=== PATIENT | female | born 1955 | race Caucasian/White ===

== ENCOUNTER 2017-04-24 10:27 | Day surgery (SDC) | payer MEDICARE, MEDICAID ==
[~2017-04-24 10:27] MED LIST: ALLO100T16 PO; ASPI-1265 PO; BAC10T PO; CEPH500C5 PO; GABA-338 PO; HYDR-3972 PO; LISI40TA4 PO; POTA8TAB8 PO
[2017-04-24] MEDS ORDERED: LIDOcaine 2% 5ml jelly ONE (11:21)
[2017-04-24] MEDS ORDERED: FURO-150 PO (12:18)
[2017-04-24] MEDS ORDERED: AMIT-189 PO (12:19)
== END 2017-04-24 13:15 | disposition home or self-care (01) ==
LOC: WOUND CARE 10:27
PROVIDERS: ATTEND Surgery
DX: E11.622 Type 2 diabetes mellitus with other skin ulcer (principal); L97.221 Non-pressure chronic ulcer of left calf limited to breakdown of skin; L97.211 Non-pressure chronic ulcer of right calf limited to breakdown of skin; I83.012 Varicose veins of right lower extremity with ulcer of calf; I83.022 Varicose veins of left lower extremity with ulcer of calf; E11.22 Type 2 diabetes mellitus with diabetic chronic kidney disease; I12.9 Hypertensive chronic kidney disease with stage 1 through stage 4 chronic kidney disease, or unspecified chronic kidney disease; N18.9 Chronic kidney disease, unspecified; J44.9 Chronic obstructive pulmonary disease, unspecified; K21.9 Gastro-esophageal reflux disease without esophagitis; E66.01 Morbid (severe) obesity due to excess calories; G47.33 Obstructive sleep apnea (adult) (pediatric); E11.40 Type 2 diabetes mellitus with diabetic neuropathy, unspecified; E11.51 Type 2 diabetes mellitus with diabetic peripheral angiopathy without gangrene; F17.210 Nicotine dependence, cigarettes, uncomplicated; F32.9 Major depressive disorder, single episode, unspecified; Z90.710 Acquired absence of both cervix and uterus; Z79.82 Long term (current) use of aspirin; Z68.43 Body mass index [BMI] 50.0-59.9, adult
CPT/HCPCS: 36416; 82948; 87070; 87075; 87077; 87102; 87186; 97597; 97598; A6021; A6223; A6441

== ENCOUNTER 2017-04-29 09:47 | Day surgery (SDC) | payer MEDICARE, MEDICAID ==
[~2017-04-29 09:47] MED LIST changes: +AMIT-189 PO; -CEPH500C5 PO; +FURO-150 PO
[2017-04-29] MEDS ORDERED: LIDOcaine 2% 5ml jelly ONE (11:13)
[2017-04-29] MEDS ORDERED: LINA5TAB4 PO (15:18)
[2017-04-29] MEDS ORDERED: ALOG12.52 (15:19)
== END 2017-04-29 12:50 | disposition home or self-care (01) ==
LOC: WOUND CARE 09:47
PROVIDERS: ATTEND Surgery
DX: E11.622 Type 2 diabetes mellitus with other skin ulcer (principal); L97.221 Non-pressure chronic ulcer of left calf limited to breakdown of skin; L97.211 Non-pressure chronic ulcer of right calf limited to breakdown of skin; I83.012 Varicose veins of right lower extremity with ulcer of calf; I83.022 Varicose veins of left lower extremity with ulcer of calf; E11.22 Type 2 diabetes mellitus with diabetic chronic kidney disease; I12.9 Hypertensive chronic kidney disease with stage 1 through stage 4 chronic kidney disease, or unspecified chronic kidney disease; N18.9 Chronic kidney disease, unspecified; J44.9 Chronic obstructive pulmonary disease, unspecified; K21.9 Gastro-esophageal reflux disease without esophagitis; E66.01 Morbid (severe) obesity due to excess calories; G47.33 Obstructive sleep apnea (adult) (pediatric); E11.40 Type 2 diabetes mellitus with diabetic neuropathy, unspecified; E11.51 Type 2 diabetes mellitus with diabetic peripheral angiopathy without gangrene; F17.210 Nicotine dependence, cigarettes, uncomplicated; F32.9 Major depressive disorder, single episode, unspecified; Z90.710 Acquired absence of both cervix and uterus; Z79.82 Long term (current) use of aspirin; Z68.43 Body mass index [BMI] 50.0-59.9, adult
CPT/HCPCS: 36416; 82948; 97597; 97598; A6021; A6206; A6441

== ENCOUNTER 2017-05-06 09:53 | Day surgery (SDC) | payer MEDICARE, MEDICAID ==
[~2017-05-06 09:53] MED LIST changes: +ALOG12.52; +LINA5TAB4 PO
[2017-05-06] MEDS ORDERED: LIDOcaine 2% 5ml jelly ONE (10:10)
== END 2017-05-06 11:41 | disposition home or self-care (01) ==
LOC: WOUND CARE 09:53
PROVIDERS: ATTEND Surgery
DX: E11.622 Type 2 diabetes mellitus with other skin ulcer (principal); L97.221 Non-pressure chronic ulcer of left calf limited to breakdown of skin; L97.211 Non-pressure chronic ulcer of right calf limited to breakdown of skin; I83.012 Varicose veins of right lower extremity with ulcer of calf; I83.022 Varicose veins of left lower extremity with ulcer of calf; E11.40 Type 2 diabetes mellitus with diabetic neuropathy, unspecified; E11.51 Type 2 diabetes mellitus with diabetic peripheral angiopathy without gangrene; E11.22 Type 2 diabetes mellitus with diabetic chronic kidney disease; I12.9 Hypertensive chronic kidney disease with stage 1 through stage 4 chronic kidney disease, or unspecified chronic kidney disease; N18.9 Chronic kidney disease, unspecified; J44.9 Chronic obstructive pulmonary disease, unspecified; K21.9 Gastro-esophageal reflux disease without esophagitis; E66.01 Morbid (severe) obesity due to excess calories; G47.33 Obstructive sleep apnea (adult) (pediatric); F32.9 Major depressive disorder, single episode, unspecified; Z90.710 Acquired absence of both cervix and uterus; Z79.82 Long term (current) use of aspirin; Z68.43 Body mass index [BMI] 50.0-59.9, adult
CPT/HCPCS: 36416; 82948; 97597; A6021; A6206; A6223; A6250; A6441

== ENCOUNTER 2017-05-13 09:34 | Outpatient (CLI) | payer MEDICARE, MEDICAID | END 2017-05-13 10:39 | disposition home or self-care (01) | LOC: WOUND CARE 09:34 → EDSTATUS 10:00 → WOUND CARE 10:39 | PROVIDERS: ATTEND Surgery | DX: E11.622 Type 2 diabetes mellitus with other skin ulcer (principal); L97.221 Non-pressure chronic ulcer of left calf limited to breakdown of skin; L97.211 Non-pressure chronic ulcer of right calf limited to breakdown of skin; E11.40 Type 2 diabetes mellitus with diabetic neuropathy, unspecified; E11.51 Type 2 diabetes mellitus with diabetic peripheral angiopathy without gangrene; E11.22 Type 2 diabetes mellitus with diabetic chronic kidney disease; I12.9 Hypertensive chronic kidney disease with stage 1 through stage 4 chronic kidney disease, or unspecified chronic kidney disease; N18.9 Chronic kidney disease, unspecified; J44.9 Chronic obstructive pulmonary disease, unspecified; K21.9 Gastro-esophageal reflux disease without esophagitis; E66.01 Morbid (severe) obesity due to excess calories; G47.33 Obstructive sleep apnea (adult) (pediatric); F32.9 Major depressive disorder, single episode, unspecified; Z90.710 Acquired absence of both cervix and uterus; Z79.82 Long term (current) use of aspirin; Z68.43 Body mass index [BMI] 50.0-59.9, adult | CPT/HCPCS: 29581; 36416; 82948; A6021; A6206; A6441 ==

== ENCOUNTER 2017-05-20 09:51 | Day surgery (SDC) | payer MEDICARE, MEDICAID ==
[2017-05-20] MEDS ORDERED: LIDOcaine 2% 5ml jelly ONE (11:06)
== END 2017-05-20 12:15 | disposition home or self-care (01) ==
LOC: WOUND CARE 09:51
PROVIDERS: ATTEND Surgery
DX: E11.622 Type 2 diabetes mellitus with other skin ulcer (principal); L97.221 Non-pressure chronic ulcer of left calf limited to breakdown of skin; L97.211 Non-pressure chronic ulcer of right calf limited to breakdown of skin; E11.40 Type 2 diabetes mellitus with diabetic neuropathy, unspecified; E11.51 Type 2 diabetes mellitus with diabetic peripheral angiopathy without gangrene; E11.22 Type 2 diabetes mellitus with diabetic chronic kidney disease; I12.9 Hypertensive chronic kidney disease with stage 1 through stage 4 chronic kidney disease, or unspecified chronic kidney disease; N18.9 Chronic kidney disease, unspecified; J44.9 Chronic obstructive pulmonary disease, unspecified; K21.9 Gastro-esophageal reflux disease without esophagitis; E66.01 Morbid (severe) obesity due to excess calories; G47.33 Obstructive sleep apnea (adult) (pediatric); F32.9 Major depressive disorder, single episode, unspecified; Z90.710 Acquired absence of both cervix and uterus; Z79.82 Long term (current) use of aspirin; Z68.43 Body mass index [BMI] 50.0-59.9, adult
CPT/HCPCS: 36416; 82948; 97597; 97598; A6021; A6206; A6441

== ENCOUNTER 2017-05-27 10:00 | Day surgery (SDC) | payer MEDICARE, MEDICAID ==
[2017-05-27] MEDS ORDERED: LIDOcaine 2% 5ml jelly ONE (11:00)
== END 2017-05-27 11:56 | disposition home or self-care (01) ==
LOC: WOUND CARE 10:00
PROVIDERS: ATTEND Surgery
DX: E11.622 Type 2 diabetes mellitus with other skin ulcer (principal); L97.821 Non-pressure chronic ulcer of other part of left lower leg limited to breakdown of skin; L97.811 Non-pressure chronic ulcer of other part of right lower leg limited to breakdown of skin; E11.40 Type 2 diabetes mellitus with diabetic neuropathy, unspecified; E11.51 Type 2 diabetes mellitus with diabetic peripheral angiopathy without gangrene; E11.22 Type 2 diabetes mellitus with diabetic chronic kidney disease; I12.9 Hypertensive chronic kidney disease with stage 1 through stage 4 chronic kidney disease, or unspecified chronic kidney disease; N18.9 Chronic kidney disease, unspecified; J44.9 Chronic obstructive pulmonary disease, unspecified; K21.9 Gastro-esophageal reflux disease without esophagitis; E66.01 Morbid (severe) obesity due to excess calories; G47.33 Obstructive sleep apnea (adult) (pediatric); F32.9 Major depressive disorder, single episode, unspecified; Z90.710 Acquired absence of both cervix and uterus; Z79.82 Long term (current) use of aspirin; Z68.43 Body mass index [BMI] 50.0-59.9, adult
CPT/HCPCS: 36416; 82948; 97597; A6021; A6206; A6441

== ENCOUNTER 2017-06-03 10:05 | Outpatient (CLI) | payer MEDICARE, MEDICAID | END 2017-06-03 11:30 | disposition home or self-care (01) | LOC: WOUND CARE 10:05 | PROVIDERS: ATTEND Surgery | DX: E11.622 Type 2 diabetes mellitus with other skin ulcer (principal); L97.821 Non-pressure chronic ulcer of other part of left lower leg limited to breakdown of skin; L97.811 Non-pressure chronic ulcer of other part of right lower leg limited to breakdown of skin; E11.40 Type 2 diabetes mellitus with diabetic neuropathy, unspecified; E11.51 Type 2 diabetes mellitus with diabetic peripheral angiopathy without gangrene; E11.22 Type 2 diabetes mellitus with diabetic chronic kidney disease; I12.9 Hypertensive chronic kidney disease with stage 1 through stage 4 chronic kidney disease, or unspecified chronic kidney disease; N18.9 Chronic kidney disease, unspecified; J44.9 Chronic obstructive pulmonary disease, unspecified; K21.9 Gastro-esophageal reflux disease without esophagitis; E66.01 Morbid (severe) obesity due to excess calories; G47.33 Obstructive sleep apnea (adult) (pediatric); F32.9 Major depressive disorder, single episode, unspecified; Z90.710 Acquired absence of both cervix and uterus; Z79.82 Long term (current) use of aspirin; Z68.43 Body mass index [BMI] 50.0-59.9, adult | CPT/HCPCS: 29581; 36416; 82948; A6021; A6206; A6441 ==

== ENCOUNTER 2017-06-10 10:08 | Day surgery (SDC) | payer MEDICARE, MEDICAID | END 2017-06-10 12:08 | disposition home or self-care (01) | LOC: WOUND CARE 10:08 | PROVIDERS: ATTEND Surgery | DX: E11.622 Type 2 diabetes mellitus with other skin ulcer (principal); L97.821 Non-pressure chronic ulcer of other part of left lower leg limited to breakdown of skin; L97.811 Non-pressure chronic ulcer of other part of right lower leg limited to breakdown of skin; I83.012 Varicose veins of right lower extremity with ulcer of calf; I83.022 Varicose veins of left lower extremity with ulcer of calf; E11.40 Type 2 diabetes mellitus with diabetic neuropathy, unspecified; E11.51 Type 2 diabetes mellitus with diabetic peripheral angiopathy without gangrene; E11.22 Type 2 diabetes mellitus with diabetic chronic kidney disease; I12.9 Hypertensive chronic kidney disease with stage 1 through stage 4 chronic kidney disease, or unspecified chronic kidney disease; N18.9 Chronic kidney disease, unspecified; J44.9 Chronic obstructive pulmonary disease, unspecified; K21.9 Gastro-esophageal reflux disease without esophagitis; E66.01 Morbid (severe) obesity due to excess calories; G47.33 Obstructive sleep apnea (adult) (pediatric); F32.9 Major depressive disorder, single episode, unspecified; Z90.710 Acquired absence of both cervix and uterus; Z79.82 Long term (current) use of aspirin; Z68.43 Body mass index [BMI] 50.0-59.9, adult | CPT/HCPCS: 29581; 36416; 82948; 97597; A6021; A6441 ==

== ENCOUNTER 2017-06-17 10:31 | Day surgery (SDC) | payer MEDICARE, MEDICAID ==
[2017-06-17] MEDS ORDERED: LIDOcaine 2% 5ml jelly ONE (10:57)
== END 2017-06-17 11:40 | disposition home or self-care (01) ==
LOC: WOUND CARE 10:31
PROVIDERS: ATTEND Surgery
DX: E11.622 Type 2 diabetes mellitus with other skin ulcer (principal); L97.821 Non-pressure chronic ulcer of other part of left lower leg limited to breakdown of skin; L97.811 Non-pressure chronic ulcer of other part of right lower leg limited to breakdown of skin; I83.012 Varicose veins of right lower extremity with ulcer of calf; I83.022 Varicose veins of left lower extremity with ulcer of calf; E11.40 Type 2 diabetes mellitus with diabetic neuropathy, unspecified; E11.51 Type 2 diabetes mellitus with diabetic peripheral angiopathy without gangrene; E11.22 Type 2 diabetes mellitus with diabetic chronic kidney disease; I12.9 Hypertensive chronic kidney disease with stage 1 through stage 4 chronic kidney disease, or unspecified chronic kidney disease; N18.9 Chronic kidney disease, unspecified; J44.9 Chronic obstructive pulmonary disease, unspecified; K21.9 Gastro-esophageal reflux disease without esophagitis; E66.01 Morbid (severe) obesity due to excess calories; G47.33 Obstructive sleep apnea (adult) (pediatric); F32.9 Major depressive disorder, single episode, unspecified; F17.200 Nicotine dependence, unspecified, uncomplicated; Z90.710 Acquired absence of both cervix and uterus; Z79.82 Long term (current) use of aspirin; Z68.43 Body mass index [BMI] 50.0-59.9, adult
CPT/HCPCS: 29581; 36416; 82948; 97597; A6021; A6206; A6441

== ENCOUNTER 2017-06-24 10:38 | Outpatient (CLI) | payer MEDICARE, MEDICAID | END 2017-06-24 11:48 | disposition home or self-care (01) | LOC: WOUND CARE 10:38 | PROVIDERS: ATTEND Surgery | DX: E11.622 Type 2 diabetes mellitus with other skin ulcer (principal); L97.821 Non-pressure chronic ulcer of other part of left lower leg limited to breakdown of skin; L97.811 Non-pressure chronic ulcer of other part of right lower leg limited to breakdown of skin; I83.012 Varicose veins of right lower extremity with ulcer of calf; I83.022 Varicose veins of left lower extremity with ulcer of calf; E11.40 Type 2 diabetes mellitus with diabetic neuropathy, unspecified; E11.51 Type 2 diabetes mellitus with diabetic peripheral angiopathy without gangrene; E11.65 Type 2 diabetes mellitus with hyperglycemia; E11.22 Type 2 diabetes mellitus with diabetic chronic kidney disease; I12.9 Hypertensive chronic kidney disease with stage 1 through stage 4 chronic kidney disease, or unspecified chronic kidney disease; N18.9 Chronic kidney disease, unspecified; J44.9 Chronic obstructive pulmonary disease, unspecified; K21.9 Gastro-esophageal reflux disease without esophagitis; E66.01 Morbid (severe) obesity due to excess calories; G47.33 Obstructive sleep apnea (adult) (pediatric); F32.9 Major depressive disorder, single episode, unspecified; F17.200 Nicotine dependence, unspecified, uncomplicated; Z90.710 Acquired absence of both cervix and uterus; Z79.82 Long term (current) use of aspirin; Z68.43 Body mass index [BMI] 50.0-59.9, adult | CPT/HCPCS: 29581; 36416; 82948; A6441 ==

== ENCOUNTER 2017-07-01 10:45 | Day surgery (SDC) | payer MEDICARE, MEDICAID | END 2017-07-01 14:00 | disposition home or self-care (01) | LOC: WOUND CARE 10:45 | PROVIDERS: ATTEND Surgery | DX: E11.622 Type 2 diabetes mellitus with other skin ulcer (principal); L97.821 Non-pressure chronic ulcer of other part of left lower leg limited to breakdown of skin; L97.811 Non-pressure chronic ulcer of other part of right lower leg limited to breakdown of skin; I83.012 Varicose veins of right lower extremity with ulcer of calf; I83.022 Varicose veins of left lower extremity with ulcer of calf; E11.40 Type 2 diabetes mellitus with diabetic neuropathy, unspecified; E11.51 Type 2 diabetes mellitus with diabetic peripheral angiopathy without gangrene; E11.65 Type 2 diabetes mellitus with hyperglycemia; E11.22 Type 2 diabetes mellitus with diabetic chronic kidney disease; I12.9 Hypertensive chronic kidney disease with stage 1 through stage 4 chronic kidney disease, or unspecified chronic kidney disease; N18.9 Chronic kidney disease, unspecified; J44.9 Chronic obstructive pulmonary disease, unspecified; K21.9 Gastro-esophageal reflux disease without esophagitis; E66.01 Morbid (severe) obesity due to excess calories; G47.33 Obstructive sleep apnea (adult) (pediatric); F32.9 Major depressive disorder, single episode, unspecified; F17.200 Nicotine dependence, unspecified, uncomplicated; Z90.710 Acquired absence of both cervix and uterus; Z79.82 Long term (current) use of aspirin; Z68.43 Body mass index [BMI] 50.0-59.9, adult | CPT/HCPCS: 29581; 36416; 82948; 97597; A6021; A6206; A6212; A6250; A6441 ==

== ENCOUNTER 2017-07-08 09:57 | Outpatient (CLI) | payer MEDICARE, MEDICAID | END 2017-07-08 12:03 | disposition home or self-care (01) | LOC: WOUND CARE 09:57 → EDSTATUS 10:30 → WOUND CARE 12:03 | PROVIDERS: ATTEND Surgery | DX: E11.622 Type 2 diabetes mellitus with other skin ulcer (principal); L97.821 Non-pressure chronic ulcer of other part of left lower leg limited to breakdown of skin; L97.811 Non-pressure chronic ulcer of other part of right lower leg limited to breakdown of skin; I83.012 Varicose veins of right lower extremity with ulcer of calf; I83.022 Varicose veins of left lower extremity with ulcer of calf; E11.40 Type 2 diabetes mellitus with diabetic neuropathy, unspecified; E11.51 Type 2 diabetes mellitus with diabetic peripheral angiopathy without gangrene; E11.65 Type 2 diabetes mellitus with hyperglycemia; E11.22 Type 2 diabetes mellitus with diabetic chronic kidney disease; I12.9 Hypertensive chronic kidney disease with stage 1 through stage 4 chronic kidney disease, or unspecified chronic kidney disease; N18.9 Chronic kidney disease, unspecified; J44.9 Chronic obstructive pulmonary disease, unspecified; K21.9 Gastro-esophageal reflux disease without esophagitis; E66.01 Morbid (severe) obesity due to excess calories; G47.33 Obstructive sleep apnea (adult) (pediatric); F32.9 Major depressive disorder, single episode, unspecified; F17.200 Nicotine dependence, unspecified, uncomplicated; Z90.710 Acquired absence of both cervix and uterus; Z79.82 Long term (current) use of aspirin; Z68.43 Body mass index [BMI] 50.0-59.9, adult | CPT/HCPCS: 29581; 36416; 82948; 99215; A6441 ==

== ENCOUNTER 2017-10-02 07:56 | Emergency (ER) | payer MEDICARE, MEDICAID ==
[~2017-10-02] VITALS: Ht 165.1 cm; Wt 138.0 kg
[2017-10-02] MEDS ORDERED: normal saline 1000ML IV soln IVB ONE (08:30)
[2017-10-02 08:52] LABS: BASOPHILS # (AUTO) 0.1 X10'3 (0-0.2); BASOPHILS % (AUTO) 0.8 % (0-1); EOSINOPHILS # (AUTO) 0.2 X10'3 (0-0.9); EOSINOPHILS % (AUTO) 2.1 % (0-6); HEMATOCRIT 45.4 % (35.0-45.0); HEMOGLOBIN 14.5 g/dl (12.0-16.0); LYMPHOCYTES # (AUTO) 2.3 X10'3 (1.1-4.8); LYMPHOCYTES % (AUTO) 19.1 % (21-51); MEAN CORPUSCULAR HEMOGLOBIN 29.5 PG (27.0-31.0); MEAN CORPUSCULAR VOLUME 92.1 FL (78-98); MEAN PLATELET VOLUME 9.3 FL (7.4-10.4); MONOCYTES # (AUTO) 0.5 X10'3 (0-0.9); MONOCYTES % (AUTO) 4.2 % (2-12); NEUTROPHILS # (AUTO) 8.7 X10'3 (1.8-7.7); NEUTROPHILS % (AUTO) 73.8 % (42-75); PLATELET COUNT 168 X10'3 (140-440); RED BLOOD COUNT 4.93 X10'6 (4.20-5.60); RED CELL DISTRIBUTION WIDTH 14.7 % (11.5-14.5); WHITE BLOOD COUNT 11.8 X10'3 (4.5-11.0)
[2017-10-02 09:15] LABS: ALANINE AMINOTRANSFERASE 20 U/L (12-78); ALBUMIN 3.5 G/DL (3.4-5.0); ALBUMIN/GLOBULIN RATIO 0.8 (1.1-1.5); ALKALINE PHOSPHATASE 152 IU/L (46-116); ANION GAP 8 (8-16); ASPARTATE AMINO TRANSFERASE 15 U/L (10-37); BILIRUBIN,TOTAL 0.5 MG/DL (0.1-1.0); BLOOD UREA NITROGEN 51 MG/DL (7-18); BUN/CREATININE RATIO 27.7 (6.6-38.0); CALCIUM 9.5 MG/DL (8.5-10.1); CHLORIDE 106 MMOL/L (99-107); CREATININE 1.84 MG/DL (0.40-0.90); GLUCOSE 145 MG/DL (70-104); LIPASE 197 U/L (73-393); POTASSIUM 3.7 MMOL/L (3.5-5.1); SODIUM 144 MMOL/L (135-145); TOTAL CARBON DIOXIDE 30.2 MMOL/L (24-32); TOTAL PROTEIN 7.7 G/DL (6.4-8.2); eGFR 28 ML/MIN
[2017-10-02 09:21] VITALS: BP 98/54
[2017-10-02] MEDS ORDERED: CIPR-230 PO (09:33)
[2017-10-02] MEDS ORDERED: ciprofloxacin 250mg tablet PO ONE (09:35)
[2017-10-02 10:18] LABS: CLARITY,URINE CLOUDY (Clear); COLOR,URINE YELLOW (Yellow); GLUCOSE, URINE NEGATIVE (Neg); KETONES,URINE NEGATIVE (Neg); LEUKOCYTE ESTERASE ,URINE LARGE (Neg); NITRITES, URINE POSITIVE (Neg); OCCULT BLOOD,URINE TRACE-INTACT (Neg); PROTEIN,URINE TRACE mg/dl (Neg); UROBILINOGEN,URINE 0.2 E.U/dL (0.2-1.0)
[2017-10-02 10:19] LABS: UA COLLECTION TYPE STRAIGHT CATH
[2017-10-02 10:20] LABS: BACTERIA,URINE 4+ /HPF (Neg); MUCUS STRANDS FEW /LPF (Neg); RBC,URINE 0-2 /HPF (0-2); SQUAMOUS EPITHELIAL CELL,UR NONE SEEN /LPF (FEW)
== END 2017-10-02 11:07 | disposition home or self-care (01) ==
LOC: ER 07:57
DX: S80.811A Abrasion, right lower leg, initial encounter (principal); L03.115 Cellulitis of right lower limb; I10 Essential (primary) hypertension; J44.9 Chronic obstructive pulmonary disease, unspecified; K21.9 Gastro-esophageal reflux disease without esophagitis; E11.9 Type 2 diabetes mellitus without complications; Z79.82 Long term (current) use of aspirin; Z79.899 Other long term (current) drug therapy; X58.XXXA Exposure to other specified factors, initial encounter; Y93.89 Activity, other specified; Y92.89 Other specified places as the place of occurrence of the external cause; Y99.8 Other external cause status
CPT/HCPCS: 36415; 80053; 80320; 81001; 83690; 85025; 87077; 87088; 87186; 93005; 99285; A4310; J7030

== ENCOUNTER 2017-10-12 16:55 | Inpatient (IN) | payer MEDICARE, MEDICAID ==
[~2017-10-12] VITALS: Ht 165.1 cm; Wt 159.1 kg
[~2017-10-12 16:55] MED LIST changes: +CIPR-230 PO
[2017-10-12] MEDS ORDERED: aspirin 81mg tab.chew PO ONE (17:30)
[2017-10-12 18:14] LABS: BASOPHILS % (AUTO) 0.2 % (0-1); EOSINOPHILS # (AUTO) 0.3 X10'3 (0-0.9); HEMATOCRIT 42.7 % (35.0-45.0); HEMOGLOBIN 14.4 g/dl (12.0-16.0); LYMPHOCYTES # (AUTO) 2.5 X10'3 (1.1-4.8); LYMPHOCYTES % (AUTO) 16.3 % (21-51); MEAN CORPUSCULAR HEMOGLOBIN 30.5 PG (27.0-31.0); MEAN CORPUSCULAR HGB CONC 33.7 % (33.0-36.5); MEAN CORPUSCULAR VOLUME 90.4 FL (78-98); MEAN PLATELET VOLUME 9.7 FL (7.4-10.4); MONOCYTES # (AUTO) 0.8 X10'3 (0-0.9); NEUTROPHILS # (AUTO) 11.5 X10'3 (1.8-7.7); NEUTROPHILS % (AUTO) 76.5 % (42-75); PLATELET COUNT 163 X10'3 (140-440); RED BLOOD COUNT 4.73 X10'6 (4.20-5.60); RED CELL DISTRIBUTION WIDTH 15.8 % (11.5-14.5)
[2017-10-12 18:26] LABS: PARTIAL THROMBOPLASTIN TIME 26 SECONDS (22-32); PROTHROMBIN TIME 10.3 SECONDS (9.0-12.0)
[2017-10-12 18:33] LABS: ALANINE AMINOTRANSFERASE 21 U/L (12-78); ALBUMIN 3.6 G/DL (3.4-5.0); ALBUMIN/GLOBULIN RATIO 0.8 (1.1-1.5); ALKALINE PHOSPHATASE 145 IU/L (46-116); ANION GAP 13 (8-16); ASPARTATE AMINO TRANSFERASE 24 U/L (10-37); BILIRUBIN,TOTAL 0.7 MG/DL (0.1-1.0); BLOOD UREA NITROGEN 65 MG/DL (7-18); BUN/CREATININE RATIO 18.2 (6.6-38.0); CALCIUM 9.6 MG/DL (8.5-10.1); CHLORIDE 99 MMOL/L (99-107); CREATININE 3.57 MG/DL (0.40-0.90); GLUCOSE 132 MG/DL (70-104); SODIUM 137 MMOL/L (135-145); TOTAL PROTEIN 7.9 G/DL (6.4-8.2); eGFR 13 ML/MIN
[2017-10-12] MEDS ORDERED: normal saline 1000ml 1,000 ML IV ONE (19:00)
[2017-10-12] MEDS: normal saline 1000ml 1,000 ML IV SCH ×2 (19:17→22:39)
[2017-10-12 20:55] LABS: CLARITY,URINE SLIGHTLY CLOUDY (Clear); COLOR,URINE YELLOW (Yellow); GLUCOSE, URINE NEGATIVE (Neg); KETONES,URINE NEGATIVE (Neg); LEUKOCYTE ESTERASE ,URINE LARGE (Neg); NITRITES, URINE POSITIVE (Neg); OCCULT BLOOD,URINE MODERATE (Neg); PH,URINE 5.5 (4.8-8.0); PROTEIN,URINE TRACE mg/dl (Neg); UROBILINOGEN,URINE 0.2 E.U/dL (0.2-1.0)
[2017-10-12 20:57] LABS: UA COLLECTION TYPE OTHER
[2017-10-12 21:00] LABS: BACTERIA,URINE 4+ /HPF (Neg); RBC,URINE 20-50 /HPF (0-2); SQUAMOUS EPITHELIAL CELL,UR MODERATE /LPF (FEW); WBC,URINE TNTC /HPF (0-4)
[2017-10-12] MEDS ORDERED: temazepam 15mg capsule PO PRN (21:00)
[2017-10-12] MEDS ORDERED: dextrose ORAL solution 15 GM/59 ML bottle PO PRN ×2 (21:15)
[2017-10-12] MEDS ORDERED: dextrose 50%-water 50ml dispensing syringe IV PRN ×2 (21:15)
[2017-10-12] MEDS ORDERED: insulin Lispro (HumaLOG) vial - multi-dose SQ SCH (21:15)
[2017-10-12] MEDS ORDERED: MESSAGE TO PHARMACY PO ONE (21:15)
[2017-10-12] MEDS ORDERED: acetaminophen 325mg tablet PO PRN ×2 (21:15)
[2017-10-12] MEDS ORDERED: magnesium hydroxide 30ml (MOM) UD suspension PO PRN (21:15)
[2017-10-12] MEDS ORDERED: glucagon, human recombinant 1mg kit SUBCUT PRN (21:15)
[2017-10-12] MEDS ORDERED: mag hydrox/Alum hydrox/simeth 30ml oral suspension PO PRN (21:15)
[2017-10-12] MEDS ORDERED: HYDROcodone/acetaminophen 5mg/325mg tablet PO PRN (21:15)
[2017-10-12] MEDS ORDERED: ondansetron/PF 4mg/2ml inj IV PRN (21:15)
[2017-10-12] MEDS ORDERED: cefTRIAXone 1g/NS 100ml IVPB 100 ML IV SCH (21:15)
[2017-10-12 21:52] LABS: HEMOGLOBIN A1C 7.1 % (4.5-6.2)
[2017-10-12] MEDS: CefTRIAXone/D5W-Rocephin 1gm 50 ML IV SCH (22:42)
[2017-10-12 23:17] VITALS: BP 87/47
[2017-10-13] VITALS (7 sets, daily range): BP systolic 78–151; BP diastolic 31–73
[2017-10-13] MEDS: normal saline 1000ml 1,000 ML IV SCH ×4 (05:32→21:50)
[2017-10-13 05:55] LABS: BASOPHILS # (AUTO) 0.1 X10'3 (0-0.2); BASOPHILS % (AUTO) 0.5 % (0-1); EOSINOPHILS # (AUTO) 0.3 X10'3 (0-0.9); EOSINOPHILS % (AUTO) 1.8 % (0-6); HEMATOCRIT 38.4 % (35.0-45.0); HEMOGLOBIN 12.7 g/dl (12.0-16.0); MEAN CORPUSCULAR HEMOGLOBIN 30.3 PG (27.0-31.0); MEAN CORPUSCULAR VOLUME 91.6 FL (78-98); MEAN PLATELET VOLUME 9.4 FL (7.4-10.4); MONOCYTES # (AUTO) 0.9 X10'3 (0-0.9); MONOCYTES % (AUTO) 6.5 % (2-12); NEUTROPHILS # (AUTO) 9.5 X10'3 (1.8-7.7); NEUTROPHILS % (AUTO) 69.2 % (42-75); PLATELET COUNT 150 X10'3 (140-440); RED BLOOD COUNT 4.19 X10'6 (4.20-5.60); RED CELL DISTRIBUTION WIDTH 15.8 % (11.5-14.5); WHITE BLOOD COUNT 13.8 X10'3 (4.5-11.0)
[2017-10-13 06:14] LABS: ALBUMIN 2.9 G/DL (3.4-5.0); ANION GAP 9 (8-16); BLOOD UREA NITROGEN 67 MG/DL (7-18); BUN/CREATININE RATIO 19.7 (6.6-38.0); CALCIUM 9.1 MG/DL (8.5-10.1); CHLORIDE 103 MMOL/L (99-107); GLUCOSE 129 MG/DL (70-104); POTASSIUM 4.1 MMOL/L (3.5-5.1); SODIUM 141 MMOL/L (135-145); eGFR 14 ML/MIN
[2017-10-13] MEDS ORDERED: normal saline 250ml IV soln 250 ML IV ONE (08:00)
[2017-10-13] MEDS ORDERED: ALLOPURINOL 200 MG PO SCH (08:00)
[2017-10-13] MEDS: allopurinol 100mg tablet PO SCH (08:36)
[2017-10-13] MEDS: CefTRIAXone/D5W-Rocephin 1gm 50 ML IV SCH (08:36)
[2017-10-13] MEDS: baclofen 10mg tablet PO SCH ×4 (08:36→20:29)
[2017-10-13] MEDS: aspirin 81mg tab.chew PO SCH (08:36)
[2017-10-13 09:16] LABS: ABG BASE EXCESS -2.5 mmol/L (-2.0-3.0); ABG HCO3 22.2 mmol/L (22.0-26.0); ABG OXYGEN SATURATION 93.9 % (95-98); ABG PH (T) 7.384 (7.350-7.450); ALLEN'S TEST Positive; FCOHb 1.3 % (0.5-1.5); FLOW 21 L/min; FMetHb 0.1 % (0.3-1.12); FO2Hb 92.6 % (94-100); TOTAL HEMOGLOBIN 13.4 G/dl (12.0-16.0)
[2017-10-13] MEDS: gabapentin 400mg capsule PO SCH (20:29)
[2017-10-13] MEDS: insulin glargine (Lantus) pen - multi-dose SQ SCH (21:00)
[2017-10-14] MEDS: normal saline 1000ml 1,000 ML IV SCH ×4 (03:50→23:12)
[2017-10-14 04:49] LABS: BASOPHILS % (AUTO) 0.3 % (0-1); EOSINOPHILS # (AUTO) 0.3 X10'3 (0-0.9); EOSINOPHILS % (AUTO) 2.6 % (0-6); HEMATOCRIT 37.4 % (35.0-45.0); HEMOGLOBIN 12.4 g/dl (12.0-16.0); LYMPHOCYTES # (AUTO) 1.9 X10'3 (1.1-4.8); LYMPHOCYTES % (AUTO) 19.3 % (21-51); MEAN CORPUSCULAR HEMOGLOBIN 30.2 PG (27.0-31.0); MEAN CORPUSCULAR HGB CONC 33.1 % (33.0-36.5); MEAN CORPUSCULAR VOLUME 91.2 FL (78-98); MEAN PLATELET VOLUME 9.4 FL (7.4-10.4); MONOCYTES # (AUTO) 0.5 X10'3 (0-0.9); MONOCYTES % (AUTO) 5.2 % (2-12); NEUTROPHILS # (AUTO) 7.2 X10'3 (1.8-7.7); NEUTROPHILS % (AUTO) 72.6 % (42-75); PLATELET COUNT 140 X10'3 (140-440); RED CELL DISTRIBUTION WIDTH 15.5 % (11.5-14.5); WHITE BLOOD COUNT 9.9 X10'3 (4.5-11.0)
[2017-10-14 05:08] LABS: ALBUMIN 2.8 G/DL (3.4-5.0); ANION GAP 8 (8-16); BLOOD UREA NITROGEN 44 MG/DL (7-18); BUN/CREATININE RATIO 24.4 (6.6-38.0); CALCIUM 8.8 MG/DL (8.5-10.1); CHLORIDE 108 MMOL/L (99-107); GLUCOSE 143 MG/DL (70-104); POTASSIUM 4.1 MMOL/L (3.5-5.1); SODIUM 142 MMOL/L (135-145); TOTAL CARBON DIOXIDE 25.9 MMOL/L (24-32); eGFR 28 ML/MIN
[2017-10-14 07:00] VITALS: BP 123/66
[2017-10-14] MEDS: baclofen 10mg tablet PO SCH ×4 (08:19→20:52)
[2017-10-14] MEDS: aspirin 81mg tab.chew PO SCH (08:19)
[2017-10-14] MEDS: CefTRIAXone/D5W-Rocephin 1gm 50 ML IV SCH (08:19)
[2017-10-14] MEDS: allopurinol 100mg tablet PO SCH (08:19)
[2017-10-14 11:00] VITALS: BP 125/58
[2017-10-14 20:00] VITALS: BP 142/80
[2017-10-14] MEDS: lactobacillus rhamnosus 10,000 MMU CELLS/CAPSULE PO SCH (20:52)
[2017-10-14] MEDS: gabapentin 400mg capsule PO SCH (20:52)
[2017-10-14] MEDS: insulin glargine (Lantus) pen - multi-dose SQ SCH (21:00)
[2017-10-15] VITALS: BP 136/67
[2017-10-15] MEDS: normal saline 1000ml 1,000 ML IV SCH ×3 (00:30→13:50)
[2017-10-15 05:38] LABS: ANION GAP 8 (8-16); CHLORIDE 108 MMOL/L (99-107); GLUCOSE 134 MG/DL (70-104); POTASSIUM 3.9 MMOL/L (3.5-5.1); SODIUM 140 MMOL/L (135-145); TOTAL CARBON DIOXIDE 24.5 MMOL/L (24-32)
[2017-10-15 05:39] LABS: BLOOD UREA NITROGEN 32 MG/DL (7-18); BUN/CREATININE RATIO 27.4 (6.6-38.0); CALCIUM 9.1 MG/DL (8.5-10.1); CREATININE 1.17 MG/DL (0.40-0.90); eGFR 47 ML/MIN
[2017-10-15 07:30] VITALS: BP 134/60
[2017-10-15 08:29] LABS: BASOPHILS % (AUTO) 0.4 % (0-1); EOSINOPHILS # (AUTO) 0.2 X10'3 (0-0.9); EOSINOPHILS % (AUTO) 2.8 % (0-6); HEMATOCRIT 37.1 % (35.0-45.0); HEMOGLOBIN 12.5 g/dl (12.0-16.0); LYMPHOCYTES # (AUTO) 1.6 X10'3 (1.1-4.8); LYMPHOCYTES % (AUTO) 19.2 % (21-51); MEAN CORPUSCULAR HEMOGLOBIN 30.9 PG (27.0-31.0); MEAN CORPUSCULAR HGB CONC 33.6 % (33.0-36.5); MEAN PLATELET VOLUME 9.1 FL (7.4-10.4); MONOCYTES # (AUTO) 0.4 X10'3 (0-0.9); MONOCYTES % (AUTO) 4.9 % (2-12); NEUTROPHILS # (AUTO) 6.4 X10'3 (1.8-7.7); NEUTROPHILS % (AUTO) 72.7 % (42-75); PLATELET COUNT 139 X10'3 (140-440); RED BLOOD COUNT 4.03 X10'6 (4.20-5.60); RED CELL DISTRIBUTION WIDTH 14.5 % (11.5-14.5); WHITE BLOOD COUNT 8.6 X10'3 (4.5-11.0)
[2017-10-15] MEDS: aspirin 81mg tab.chew PO SCH (09:04)
[2017-10-15] MEDS: lactobacillus rhamnosus 10,000 MMU CELLS/CAPSULE PO SCH (09:05)
[2017-10-15] MEDS: baclofen 10mg tablet PO SCH ×2 (09:05→13:34)
[2017-10-15] MEDS: CefTRIAXone/D5W-Rocephin 1gm 50 ML IV SCH (09:05)
[2017-10-15] MEDS: allopurinol 100mg tablet PO SCH (09:05)
[2017-10-15] MEDS ORDERED: NEBU1EAC INH (09:50)
[2017-10-15] MEDS ORDERED: ALBU8.5H8 IH (09:55)
[2017-10-15 11:00] VITALS: BP 152/85
[2017-10-15] MEDS ORDERED: CEFU500T66 PO (12:07)
== END 2017-10-15 15:22 | disposition home or self-care (01) | DRG 871 ==
LOC: ER 16:56 → ED HOLD 21:12 → EDBEDREQ 21:46 → SUR 3N 22:20
PROVIDERS: ADMIT Hospitalist; ATTEND Internal Medicine
DX: A41.9 Sepsis, unspecified organism (principal); N17.0 Acute kidney failure with tubular necrosis; N39.0 Urinary tract infection, site not specified; L97.919 Non-pressure chronic ulcer of unspecified part of right lower leg with unspecified severity; Z68.43 Body mass index [BMI] 50.0-59.9, adult; B96.20 Unspecified Escherichia coli [E. coli] as the cause of diseases classified elsewhere; E11.22 Type 2 diabetes mellitus with diabetic chronic kidney disease; E11.51 Type 2 diabetes mellitus with diabetic peripheral angiopathy without gangrene; E11.622 Type 2 diabetes mellitus with other skin ulcer; E78.00 Pure hypercholesterolemia, unspecified; E78.5 Hyperlipidemia, unspecified; E86.0 Dehydration; N18.2 Chronic kidney disease, stage 2 (mild); G47.30 Sleep apnea, unspecified; E11.42 Type 2 diabetes mellitus with diabetic polyneuropathy; I12.9 Hypertensive chronic kidney disease with stage 1 through stage 4 chronic kidney disease, or unspecified chronic kidney disease; J44.9 Chronic obstructive pulmonary disease, unspecified; K21.9 Gastro-esophageal reflux disease without esophagitis; I83.018 Varicose veins of right lower extremity with ulcer other part of lower leg; F32.9 Major depressive disorder, single episode, unspecified; M10.9 Gout, unspecified; M19.90 Unspecified osteoarthritis, unspecified site; F17.210 Nicotine dependence, cigarettes, uncomplicated; Z79.4 Long term (current) use of insulin; Z82.49 Family history of ischemic heart disease and other diseases of the circulatory system; Z83.3 Family history of diabetes mellitus; Z71.6 Tobacco abuse counseling
CPT/HCPCS: 36415; 36600; 70450; 71045; 76775; 80048; 80053; 81001; 82803; 82948; 83036; 84484; 85018; 85025; 85610; 85730; 87070; 87077; 87088; 87186; 93005; 93306; 97110; 97161; 97530; 99285; A4649; A6196; A6212; A6213; J0696; J1815; J7030

== ENCOUNTER 2017-12-11 10:17 | Outpatient (CLI) | payer MEDICARE, MEDICAID ==
[~2017-12-11 10:17] MED LIST changes: +ALBU8.5H8 IH; -ALOG12.52; -AMIT-189 PO; +CEFU500T66 PO; -CIPR-230 PO; -FURO-150 PO; +NEBU1EAC INH; -POTA8TAB8 PO
== END 2017-12-11 12:30 | disposition home or self-care (01) ==
LOC: WOUND CARE 10:17
PROVIDERS: ATTEND Surgery
DX: E11.622 Type 2 diabetes mellitus with other skin ulcer (principal); L97.821 Non-pressure chronic ulcer of other part of left lower leg limited to breakdown of skin; L97.811 Non-pressure chronic ulcer of other part of right lower leg limited to breakdown of skin; I83.212 Varicose veins of right lower extremity with both ulcer of calf and inflammation; I83.222 Varicose veins of left lower extremity with both ulcer of calf and inflammation; L97.221 Non-pressure chronic ulcer of left calf limited to breakdown of skin; L97.211 Non-pressure chronic ulcer of right calf limited to breakdown of skin; E11.40 Type 2 diabetes mellitus with diabetic neuropathy, unspecified; E11.51 Type 2 diabetes mellitus with diabetic peripheral angiopathy without gangrene; E11.65 Type 2 diabetes mellitus with hyperglycemia; E11.22 Type 2 diabetes mellitus with diabetic chronic kidney disease; I12.9 Hypertensive chronic kidney disease with stage 1 through stage 4 chronic kidney disease, or unspecified chronic kidney disease; N18.9 Chronic kidney disease, unspecified; J44.9 Chronic obstructive pulmonary disease, unspecified; K21.9 Gastro-esophageal reflux disease without esophagitis; E66.01 Morbid (severe) obesity due to excess calories; G47.33 Obstructive sleep apnea (adult) (pediatric); F32.9 Major depressive disorder, single episode, unspecified; F17.200 Nicotine dependence, unspecified, uncomplicated; Z90.710 Acquired absence of both cervix and uterus; Z79.82 Long term (current) use of aspirin; Z68.43 Body mass index [BMI] 50.0-59.9, adult
CPT/HCPCS: 29581; 36416; 82948; A6021; A6206; A6441

== ENCOUNTER 2017-12-18 10:07 | Day surgery (SDC) | payer MEDICARE, MEDICAID ==
[2017-12-18] MEDS ORDERED: silver sulfadiazine cream 50gm TP ONE (12:09)
== END 2017-12-18 12:38 | disposition home or self-care (01) ==
LOC: WOUND CARE 10:07
PROVIDERS: ATTEND Surgery
DX: E11.622 Type 2 diabetes mellitus with other skin ulcer (principal); L97.821 Non-pressure chronic ulcer of other part of left lower leg limited to breakdown of skin; L97.811 Non-pressure chronic ulcer of other part of right lower leg limited to breakdown of skin; I83.212 Varicose veins of right lower extremity with both ulcer of calf and inflammation; I83.222 Varicose veins of left lower extremity with both ulcer of calf and inflammation; L97.221 Non-pressure chronic ulcer of left calf limited to breakdown of skin; L97.211 Non-pressure chronic ulcer of right calf limited to breakdown of skin; E11.40 Type 2 diabetes mellitus with diabetic neuropathy, unspecified; E11.51 Type 2 diabetes mellitus with diabetic peripheral angiopathy without gangrene; E11.65 Type 2 diabetes mellitus with hyperglycemia; E11.22 Type 2 diabetes mellitus with diabetic chronic kidney disease; I12.9 Hypertensive chronic kidney disease with stage 1 through stage 4 chronic kidney disease, or unspecified chronic kidney disease; N18.9 Chronic kidney disease, unspecified; J44.9 Chronic obstructive pulmonary disease, unspecified; K21.9 Gastro-esophageal reflux disease without esophagitis; F32.9 Major depressive disorder, single episode, unspecified; E66.01 Morbid (severe) obesity due to excess calories; G47.33 Obstructive sleep apnea (adult) (pediatric); F17.200 Nicotine dependence, unspecified, uncomplicated; Z90.710 Acquired absence of both cervix and uterus; Z79.82 Long term (current) use of aspirin; Z68.43 Body mass index [BMI] 50.0-59.9, adult
CPT/HCPCS: 29581; 36416; 82948; 97597; A6206; A6441

== ENCOUNTER 2017-12-25 10:05 | Outpatient (CLI) | payer MEDICARE, MEDICAID | END 2017-12-25 12:12 | disposition home or self-care (01) | LOC: WOUND CARE 10:05 | PROVIDERS: ATTEND Surgery | DX: E11.622 Type 2 diabetes mellitus with other skin ulcer (principal); L97.821 Non-pressure chronic ulcer of other part of left lower leg limited to breakdown of skin; L97.811 Non-pressure chronic ulcer of other part of right lower leg limited to breakdown of skin; I83.212 Varicose veins of right lower extremity with both ulcer of calf and inflammation; I83.222 Varicose veins of left lower extremity with both ulcer of calf and inflammation; L97.221 Non-pressure chronic ulcer of left calf limited to breakdown of skin; L97.211 Non-pressure chronic ulcer of right calf limited to breakdown of skin; E11.40 Type 2 diabetes mellitus with diabetic neuropathy, unspecified; E11.51 Type 2 diabetes mellitus with diabetic peripheral angiopathy without gangrene; E11.65 Type 2 diabetes mellitus with hyperglycemia; E11.22 Type 2 diabetes mellitus with diabetic chronic kidney disease; I12.9 Hypertensive chronic kidney disease with stage 1 through stage 4 chronic kidney disease, or unspecified chronic kidney disease; N18.9 Chronic kidney disease, unspecified; J44.9 Chronic obstructive pulmonary disease, unspecified; K21.9 Gastro-esophageal reflux disease without esophagitis; F32.9 Major depressive disorder, single episode, unspecified; E66.01 Morbid (severe) obesity due to excess calories; G47.33 Obstructive sleep apnea (adult) (pediatric); F17.200 Nicotine dependence, unspecified, uncomplicated; Z90.710 Acquired absence of both cervix and uterus; Z79.82 Long term (current) use of aspirin; Z68.43 Body mass index [BMI] 50.0-59.9, adult | CPT/HCPCS: 29581; 36416; 82948; A6223; A6441 ==

== ENCOUNTER 2018-01-01 10:05 | Outpatient (CLI) | payer MEDICARE, MEDICAID | END 2018-01-01 12:54 | disposition home or self-care (01) | LOC: WOUND CARE 10:05 | PROVIDERS: ATTEND Surgery | DX: E11.622 Type 2 diabetes mellitus with other skin ulcer (principal); L97.821 Non-pressure chronic ulcer of other part of left lower leg limited to breakdown of skin; L97.811 Non-pressure chronic ulcer of other part of right lower leg limited to breakdown of skin; I83.212 Varicose veins of right lower extremity with both ulcer of calf and inflammation; I83.222 Varicose veins of left lower extremity with both ulcer of calf and inflammation; L97.221 Non-pressure chronic ulcer of left calf limited to breakdown of skin; L97.211 Non-pressure chronic ulcer of right calf limited to breakdown of skin; E11.40 Type 2 diabetes mellitus with diabetic neuropathy, unspecified; E11.51 Type 2 diabetes mellitus with diabetic peripheral angiopathy without gangrene; E11.65 Type 2 diabetes mellitus with hyperglycemia; E11.22 Type 2 diabetes mellitus with diabetic chronic kidney disease; I12.9 Hypertensive chronic kidney disease with stage 1 through stage 4 chronic kidney disease, or unspecified chronic kidney disease; N18.9 Chronic kidney disease, unspecified; J44.9 Chronic obstructive pulmonary disease, unspecified; K21.9 Gastro-esophageal reflux disease without esophagitis; E66.01 Morbid (severe) obesity due to excess calories; G47.33 Obstructive sleep apnea (adult) (pediatric); F32.9 Major depressive disorder, single episode, unspecified; F17.200 Nicotine dependence, unspecified, uncomplicated; Z90.710 Acquired absence of both cervix and uterus; Z79.82 Long term (current) use of aspirin; Z68.43 Body mass index [BMI] 50.0-59.9, adult | CPT/HCPCS: 29581; 36416; 82948; A6223; A6441 ==

== ENCOUNTER 2018-01-08 10:14 | Day surgery (SDC) | payer MEDICARE, MEDICAID ==
[2018-01-08] MEDS ORDERED: silver sulfadiazine cream 400gm jar TP ONE (15:15)
== END 2018-01-08 12:39 | disposition home or self-care (01) ==
LOC: WOUND CARE 10:14
PROVIDERS: ATTEND Surgery
DX: E11.622 Type 2 diabetes mellitus with other skin ulcer (principal); L97.221 Non-pressure chronic ulcer of left calf limited to breakdown of skin; L97.211 Non-pressure chronic ulcer of right calf limited to breakdown of skin; I83.212 Varicose veins of right lower extremity with both ulcer of calf and inflammation; I83.222 Varicose veins of left lower extremity with both ulcer of calf and inflammation; E11.40 Type 2 diabetes mellitus with diabetic neuropathy, unspecified; E11.51 Type 2 diabetes mellitus with diabetic peripheral angiopathy without gangrene; E11.65 Type 2 diabetes mellitus with hyperglycemia; E11.22 Type 2 diabetes mellitus with diabetic chronic kidney disease; I12.9 Hypertensive chronic kidney disease with stage 1 through stage 4 chronic kidney disease, or unspecified chronic kidney disease; N18.9 Chronic kidney disease, unspecified; J44.9 Chronic obstructive pulmonary disease, unspecified; K21.9 Gastro-esophageal reflux disease without esophagitis; E66.01 Morbid (severe) obesity due to excess calories; G47.33 Obstructive sleep apnea (adult) (pediatric); F32.9 Major depressive disorder, single episode, unspecified; F17.200 Nicotine dependence, unspecified, uncomplicated; Z90.710 Acquired absence of both cervix and uterus; Z79.82 Long term (current) use of aspirin; Z68.43 Body mass index [BMI] 50.0-59.9, adult
CPT/HCPCS: 29581; 36416; 82948; 97597; A6223; A6441

== ENCOUNTER 2018-01-13 10:10 | Day surgery (SDC) | payer MEDICARE, MEDICAID ==
[2018-01-13] MEDS ORDERED: LIDOcaine/PRILOcaine 5gm cream TP ONE (11:11)
== END 2018-01-13 12:02 | disposition home or self-care (01) ==
LOC: WOUND CARE 10:10
PROVIDERS: ATTEND Surgery
DX: E11.622 Type 2 diabetes mellitus with other skin ulcer (principal); L97.221 Non-pressure chronic ulcer of left calf limited to breakdown of skin; L97.211 Non-pressure chronic ulcer of right calf limited to breakdown of skin; I83.212 Varicose veins of right lower extremity with both ulcer of calf and inflammation; I83.222 Varicose veins of left lower extremity with both ulcer of calf and inflammation; E11.40 Type 2 diabetes mellitus with diabetic neuropathy, unspecified; E11.51 Type 2 diabetes mellitus with diabetic peripheral angiopathy without gangrene; E11.65 Type 2 diabetes mellitus with hyperglycemia; E11.22 Type 2 diabetes mellitus with diabetic chronic kidney disease; I12.9 Hypertensive chronic kidney disease with stage 1 through stage 4 chronic kidney disease, or unspecified chronic kidney disease; N18.9 Chronic kidney disease, unspecified; J44.9 Chronic obstructive pulmonary disease, unspecified; K21.9 Gastro-esophageal reflux disease without esophagitis; E66.01 Morbid (severe) obesity due to excess calories; G47.33 Obstructive sleep apnea (adult) (pediatric); F32.9 Major depressive disorder, single episode, unspecified; F17.200 Nicotine dependence, unspecified, uncomplicated; Z90.710 Acquired absence of both cervix and uterus; Z79.82 Long term (current) use of aspirin; Z68.43 Body mass index [BMI] 50.0-59.9, adult
CPT/HCPCS: 36416; 82948; 97597; A6021; A6206; A6441

== ENCOUNTER 2018-01-22 09:50 | Outpatient (CLI) | payer MEDICARE, MEDICAID | END 2018-01-22 11:48 | disposition home or self-care (01) | LOC: WOUND CARE 09:50 → EDSTATUS 10:00 → WOUND CARE 11:48 | PROVIDERS: ATTEND Surgery | DX: E11.622 Type 2 diabetes mellitus with other skin ulcer (principal); L97.221 Non-pressure chronic ulcer of left calf limited to breakdown of skin; L97.211 Non-pressure chronic ulcer of right calf limited to breakdown of skin; I83.212 Varicose veins of right lower extremity with both ulcer of calf and inflammation; I83.222 Varicose veins of left lower extremity with both ulcer of calf and inflammation; E11.40 Type 2 diabetes mellitus with diabetic neuropathy, unspecified; E11.51 Type 2 diabetes mellitus with diabetic peripheral angiopathy without gangrene; E11.65 Type 2 diabetes mellitus with hyperglycemia; E11.22 Type 2 diabetes mellitus with diabetic chronic kidney disease; I12.9 Hypertensive chronic kidney disease with stage 1 through stage 4 chronic kidney disease, or unspecified chronic kidney disease; N18.9 Chronic kidney disease, unspecified; J44.9 Chronic obstructive pulmonary disease, unspecified; K21.9 Gastro-esophageal reflux disease without esophagitis; E66.01 Morbid (severe) obesity due to excess calories; G47.33 Obstructive sleep apnea (adult) (pediatric); F32.9 Major depressive disorder, single episode, unspecified; F17.200 Nicotine dependence, unspecified, uncomplicated; Z90.710 Acquired absence of both cervix and uterus; Z79.82 Long term (current) use of aspirin; Z68.43 Body mass index [BMI] 50.0-59.9, adult | CPT/HCPCS: 29581; 36416; 82948; A6441 ==

== ENCOUNTER 2018-11-30 10:00 | Day surgery (SDC) | payer MEDICARE, MEDICAID ==
[2018-11-30] MEDS ORDERED: silver sulfadiazine cream 50gm TP ONE (11:19)
== END 2018-11-30 11:29 | disposition home or self-care (01) ==
LOC: WOUND CARE 10:00
PROVIDERS: ATTEND Surgery
DX: E11.622 Type 2 diabetes mellitus with other skin ulcer (principal); I83.222 Varicose veins of left lower extremity with both ulcer of calf and inflammation; L97.221 Non-pressure chronic ulcer of left calf limited to breakdown of skin; I83.212 Varicose veins of right lower extremity with both ulcer of calf and inflammation; L97.211 Non-pressure chronic ulcer of right calf limited to breakdown of skin; E11.40 Type 2 diabetes mellitus with diabetic neuropathy, unspecified; E11.51 Type 2 diabetes mellitus with diabetic peripheral angiopathy without gangrene; E11.65 Type 2 diabetes mellitus with hyperglycemia; E11.22 Type 2 diabetes mellitus with diabetic chronic kidney disease; I12.9 Hypertensive chronic kidney disease with stage 1 through stage 4 chronic kidney disease, or unspecified chronic kidney disease; N18.9 Chronic kidney disease, unspecified; J44.9 Chronic obstructive pulmonary disease, unspecified; K21.9 Gastro-esophageal reflux disease without esophagitis; E66.01 Morbid (severe) obesity due to excess calories; G47.33 Obstructive sleep apnea (adult) (pediatric); F32.9 Major depressive disorder, single episode, unspecified; F17.200 Nicotine dependence, unspecified, uncomplicated; Z90.710 Acquired absence of both cervix and uterus; Z79.82 Long term (current) use of aspirin; Z68.43 Body mass index [BMI] 50.0-59.9, adult
CPT/HCPCS: 82948; 97597; A6223; 29581; A4663; A6021; A6441

== ENCOUNTER 2018-12-10 09:55 | Day surgery (SDC) | payer MEDICARE, MEDICAID | END 2018-12-10 11:55 | disposition home or self-care (01) | LOC: WOUND CARE 09:55 | PROVIDERS: ATTEND Surgery | DX: E11.622 Type 2 diabetes mellitus with other skin ulcer (principal); I83.222 Varicose veins of left lower extremity with both ulcer of calf and inflammation; L97.221 Non-pressure chronic ulcer of left calf limited to breakdown of skin; I83.212 Varicose veins of right lower extremity with both ulcer of calf and inflammation; L97.211 Non-pressure chronic ulcer of right calf limited to breakdown of skin; E11.40 Type 2 diabetes mellitus with diabetic neuropathy, unspecified; E11.51 Type 2 diabetes mellitus with diabetic peripheral angiopathy without gangrene; E11.65 Type 2 diabetes mellitus with hyperglycemia; E11.22 Type 2 diabetes mellitus with diabetic chronic kidney disease; I12.9 Hypertensive chronic kidney disease with stage 1 through stage 4 chronic kidney disease, or unspecified chronic kidney disease; N18.9 Chronic kidney disease, unspecified; J44.9 Chronic obstructive pulmonary disease, unspecified; K21.9 Gastro-esophageal reflux disease without esophagitis; E66.01 Morbid (severe) obesity due to excess calories; G47.33 Obstructive sleep apnea (adult) (pediatric); F32.9 Major depressive disorder, single episode, unspecified; F17.200 Nicotine dependence, unspecified, uncomplicated; Z90.710 Acquired absence of both cervix and uterus; Z79.82 Long term (current) use of aspirin; Z68.43 Body mass index [BMI] 50.0-59.9, adult | CPT/HCPCS: 29581; 82948; A6223; A4663; A6021; A6441 ==

== ENCOUNTER 2018-12-17 09:50 | Outpatient (CLI) | payer MEDICARE, MEDICAID | END 2018-12-17 11:12 | disposition home or self-care (01) | LOC: WOUND CARE 09:50 → EDSTATUS 10:00 → WOUND CARE 11:12 | PROVIDERS: ATTEND Surgery | DX: E11.622 Type 2 diabetes mellitus with other skin ulcer (principal); I83.212 Varicose veins of right lower extremity with both ulcer of calf and inflammation; L97.211 Non-pressure chronic ulcer of right calf limited to breakdown of skin; I83.222 Varicose veins of left lower extremity with both ulcer of calf and inflammation; L97.221 Non-pressure chronic ulcer of left calf limited to breakdown of skin; E11.40 Type 2 diabetes mellitus with diabetic neuropathy, unspecified; E11.51 Type 2 diabetes mellitus with diabetic peripheral angiopathy without gangrene; E11.65 Type 2 diabetes mellitus with hyperglycemia; E11.22 Type 2 diabetes mellitus with diabetic chronic kidney disease; I12.9 Hypertensive chronic kidney disease with stage 1 through stage 4 chronic kidney disease, or unspecified chronic kidney disease; N18.9 Chronic kidney disease, unspecified; J44.9 Chronic obstructive pulmonary disease, unspecified; K21.9 Gastro-esophageal reflux disease without esophagitis; E66.01 Morbid (severe) obesity due to excess calories; G47.33 Obstructive sleep apnea (adult) (pediatric); F32.9 Major depressive disorder, single episode, unspecified; F17.200 Nicotine dependence, unspecified, uncomplicated; Z90.710 Acquired absence of both cervix and uterus; Z79.82 Long term (current) use of aspirin; Z68.43 Body mass index [BMI] 50.0-59.9, adult | CPT/HCPCS: 29581; A6223; A4663; A6441 ==

== ENCOUNTER 2018-12-24 09:50 | Outpatient (CLI) | payer MEDICARE, MEDICAID | END 2018-12-24 11:27 | disposition home or self-care (01) | LOC: WOUND CARE 09:50 → EDSTATUS 10:00 → WOUND CARE 11:27 | PROVIDERS: ATTEND Surgery | DX: E11.622 Type 2 diabetes mellitus with other skin ulcer (principal); I83.212 Varicose veins of right lower extremity with both ulcer of calf and inflammation; L97.211 Non-pressure chronic ulcer of right calf limited to breakdown of skin; I83.222 Varicose veins of left lower extremity with both ulcer of calf and inflammation; L97.221 Non-pressure chronic ulcer of left calf limited to breakdown of skin; E11.40 Type 2 diabetes mellitus with diabetic neuropathy, unspecified; E11.51 Type 2 diabetes mellitus with diabetic peripheral angiopathy without gangrene; E11.65 Type 2 diabetes mellitus with hyperglycemia; E11.22 Type 2 diabetes mellitus with diabetic chronic kidney disease; I12.9 Hypertensive chronic kidney disease with stage 1 through stage 4 chronic kidney disease, or unspecified chronic kidney disease; N18.9 Chronic kidney disease, unspecified; J44.9 Chronic obstructive pulmonary disease, unspecified; K21.9 Gastro-esophageal reflux disease without esophagitis; E66.01 Morbid (severe) obesity due to excess calories; G47.33 Obstructive sleep apnea (adult) (pediatric); F32.9 Major depressive disorder, single episode, unspecified; F17.200 Nicotine dependence, unspecified, uncomplicated; Z90.710 Acquired absence of both cervix and uterus; Z79.82 Long term (current) use of aspirin; Z68.43 Body mass index [BMI] 50.0-59.9, adult | CPT/HCPCS: 29581; 82948; A6021; A6154; A6441 ==

== ENCOUNTER 2018-12-31 10:10 | Day surgery (SDC) | payer MEDICARE, MEDICAID ==
[2018-12-31] MEDS ORDERED: LIDOcaine 2% 5ml jelly ONE (10:38)
== END 2018-12-31 11:45 | disposition home or self-care (01) ==
LOC: WOUND CARE 10:10
PROVIDERS: ATTEND Surgery
DX: E11.622 Type 2 diabetes mellitus with other skin ulcer (principal); I83.212 Varicose veins of right lower extremity with both ulcer of calf and inflammation; L97.211 Non-pressure chronic ulcer of right calf limited to breakdown of skin; I83.222 Varicose veins of left lower extremity with both ulcer of calf and inflammation; L97.221 Non-pressure chronic ulcer of left calf limited to breakdown of skin; E11.40 Type 2 diabetes mellitus with diabetic neuropathy, unspecified; E11.51 Type 2 diabetes mellitus with diabetic peripheral angiopathy without gangrene; E11.65 Type 2 diabetes mellitus with hyperglycemia; E11.22 Type 2 diabetes mellitus with diabetic chronic kidney disease; I12.9 Hypertensive chronic kidney disease with stage 1 through stage 4 chronic kidney disease, or unspecified chronic kidney disease; N18.9 Chronic kidney disease, unspecified; J44.9 Chronic obstructive pulmonary disease, unspecified; K21.9 Gastro-esophageal reflux disease without esophagitis; E66.01 Morbid (severe) obesity due to excess calories; G47.33 Obstructive sleep apnea (adult) (pediatric); F32.9 Major depressive disorder, single episode, unspecified; F17.200 Nicotine dependence, unspecified, uncomplicated; Z90.710 Acquired absence of both cervix and uterus; Z79.82 Long term (current) use of aspirin; Z68.43 Body mass index [BMI] 50.0-59.9, adult
CPT/HCPCS: 29581; 36416; 82948; 97597; A6223; A4663; A6441

== ENCOUNTER 2019-01-07 10:25 | Outpatient (CLI) | payer MEDICARE, MEDICAID | END 2019-01-07 12:50 | disposition home or self-care (01) | LOC: WOUND CARE 10:25 → EDSTATUS 10:30 → WOUND CARE 12:50 | PROVIDERS: ATTEND Surgery | DX: E11.622 Type 2 diabetes mellitus with other skin ulcer (principal); I83.212 Varicose veins of right lower extremity with both ulcer of calf and inflammation; L97.211 Non-pressure chronic ulcer of right calf limited to breakdown of skin; I83.222 Varicose veins of left lower extremity with both ulcer of calf and inflammation; L97.221 Non-pressure chronic ulcer of left calf limited to breakdown of skin; E11.40 Type 2 diabetes mellitus with diabetic neuropathy, unspecified; E11.51 Type 2 diabetes mellitus with diabetic peripheral angiopathy without gangrene; E11.65 Type 2 diabetes mellitus with hyperglycemia; E11.22 Type 2 diabetes mellitus with diabetic chronic kidney disease; I12.9 Hypertensive chronic kidney disease with stage 1 through stage 4 chronic kidney disease, or unspecified chronic kidney disease; N18.9 Chronic kidney disease, unspecified; J44.9 Chronic obstructive pulmonary disease, unspecified; K21.9 Gastro-esophageal reflux disease without esophagitis; E66.01 Morbid (severe) obesity due to excess calories; G47.33 Obstructive sleep apnea (adult) (pediatric); F32.9 Major depressive disorder, single episode, unspecified; F17.200 Nicotine dependence, unspecified, uncomplicated; Z90.710 Acquired absence of both cervix and uterus; Z79.82 Long term (current) use of aspirin; Z68.43 Body mass index [BMI] 50.0-59.9, adult | CPT/HCPCS: 29581; A4663; A6441 ==

== ENCOUNTER 2019-09-02 11:10 | Day surgery (SDC) | payer MEDICARE, MEDICAID | END 2019-09-02 13:45 | disposition home or self-care (01) | LOC: WOUND CARE 11:10 | PROVIDERS: ATTEND Nurse Practitioner | DX: E11.622 Type 2 diabetes mellitus with other skin ulcer (principal); I83.022 Varicose veins of left lower extremity with ulcer of calf; I83.012 Varicose veins of right lower extremity with ulcer of calf; L97.821 Non-pressure chronic ulcer of other part of left lower leg limited to breakdown of skin; L97.811 Non-pressure chronic ulcer of other part of right lower leg limited to breakdown of skin; E11.22 Type 2 diabetes mellitus with diabetic chronic kidney disease; I12.9 Hypertensive chronic kidney disease with stage 1 through stage 4 chronic kidney disease, or unspecified chronic kidney disease; N18.9 Chronic kidney disease, unspecified; E11.40 Type 2 diabetes mellitus with diabetic neuropathy, unspecified; E11.51 Type 2 diabetes mellitus with diabetic peripheral angiopathy without gangrene; M19.90 Unspecified osteoarthritis, unspecified site; J44.9 Chronic obstructive pulmonary disease, unspecified; G47.33 Obstructive sleep apnea (adult) (pediatric); K21.9 Gastro-esophageal reflux disease without esophagitis; E66.01 Morbid (severe) obesity due to excess calories; F32.9 Major depressive disorder, single episode, unspecified; F17.210 Nicotine dependence, cigarettes, uncomplicated; Z79.82 Long term (current) use of aspirin; Z90.710 Acquired absence of both cervix and uterus; Z68.42 Body mass index [BMI] 45.0-49.9, adult | CPT/HCPCS: 97597 ==

== ENCOUNTER 2019-09-09 10:20 | Day surgery (SDC) | payer MEDICARE, MEDICAID ==
[2019-09-09] MEDS ORDERED: LIDOcaine 2% 5ml jelly ONE (10:44)
[2019-09-09 13:00] LABS: BASOPHILS # (AUTO) 0.1 X10'3 (0-0.2); BASOPHILS % (AUTO) 0.6 % (0-1); EOSINOPHILS # (AUTO) 0.2 X10'3 (0-0.9); HEMATOCRIT 41.2 % (35.0-45.0); HEMOGLOBIN 13.7 g/dl (12.0-16.0); LYMPHOCYTES # (AUTO) 2.1 X10'3 (1.1-4.8); LYMPHOCYTES % (AUTO) 17.6 % (21-51); MEAN CORPUSCULAR HEMOGLOBIN 30.5 PG (27.0-31.0); MEAN CORPUSCULAR HGB CONC 33.3 g/dL (33.0-36.5); MEAN CORPUSCULAR VOLUME 91.7 FL (78-98); MEAN PLATELET VOLUME 8.7 FL (7.4-10.4); MONOCYTES # (AUTO) 0.7 X10'3 (0-0.9); NEUTROPHILS # (AUTO) 8.6 X10'3 (1.8-7.7); NEUTROPHILS % (AUTO) 73.8 % (42-75); PLATELET COUNT 182 X10'3 (140-440); RED CELL DISTRIBUTION WIDTH 14.1 % (11.5-14.5); WHITE BLOOD COUNT 11.6 X10'3 (4.5-11.0)
[2019-09-09 13:08] LABS: ALANINE AMINOTRANSFERASE 29 U/L (12-78); ALBUMIN 3.3 G/DL (3.4-5.0); ALBUMIN/GLOBULIN RATIO 0.8 (1.1-1.5); ALKALINE PHOSPHATASE 166 IU/L (46-116); ANION GAP 7 (8-16); ASPARTATE AMINO TRANSFERASE 24 U/L (10-37); BILIRUBIN,TOTAL 0.3 MG/DL (0.1-1.0); BLOOD UREA NITROGEN 25 MG/DL (7-18); BUN/CREATININE RATIO 21.7 (6.6-38.0); C-REACTIVE PROTEIN 0.88 MG/DL (0.0-0.5); CALCIUM 9.7 MG/DL (8.5-10.1); CHLORIDE 111 MMOL/L (99-107); CREATININE 1.15 MG/DL (0.40-0.90); GLUCOSE 189 MG/DL (70-104); SODIUM 145 MMOL/L (135-145); TOTAL CARBON DIOXIDE 27.4 MMOL/L (24-32); TOTAL PROTEIN 7.2 G/DL (6.4-8.2); eGFR 47 ML/MIN
[2019-09-09 13:14] LABS: HEMOGLOBIN A1C 6.8 % (4.5-6.2)
== END 2019-09-09 13:33 | disposition home or self-care (01) ==
LOC: WOUND CARE 10:20
PROVIDERS: ATTEND Nurse Practitioner
DX: E11.622 Type 2 diabetes mellitus with other skin ulcer (principal); I83.022 Varicose veins of left lower extremity with ulcer of calf; I83.012 Varicose veins of right lower extremity with ulcer of calf; L97.821 Non-pressure chronic ulcer of other part of left lower leg limited to breakdown of skin; L97.811 Non-pressure chronic ulcer of other part of right lower leg limited to breakdown of skin; E11.22 Type 2 diabetes mellitus with diabetic chronic kidney disease; I12.9 Hypertensive chronic kidney disease with stage 1 through stage 4 chronic kidney disease, or unspecified chronic kidney disease; N18.9 Chronic kidney disease, unspecified; E11.40 Type 2 diabetes mellitus with diabetic neuropathy, unspecified; E11.51 Type 2 diabetes mellitus with diabetic peripheral angiopathy without gangrene; M19.90 Unspecified osteoarthritis, unspecified site; J44.9 Chronic obstructive pulmonary disease, unspecified; G47.33 Obstructive sleep apnea (adult) (pediatric); K21.9 Gastro-esophageal reflux disease without esophagitis; E66.01 Morbid (severe) obesity due to excess calories; F32.9 Major depressive disorder, single episode, unspecified; F17.210 Nicotine dependence, cigarettes, uncomplicated; Z79.82 Long term (current) use of aspirin; Z90.710 Acquired absence of both cervix and uterus; Z68.42 Body mass index [BMI] 45.0-49.9, adult
CPT/HCPCS: 36415; 80053; 83036; 85025; 85651; 86140; 93970; 97597

== ENCOUNTER 2019-09-16 13:26 | Day surgery (SDC) | payer MEDICARE, MEDICAID | END 2019-09-16 15:16 | disposition home or self-care (01) | LOC: WOUND CARE 13:26 | PROVIDERS: ATTEND Nurse Practitioner | DX: E11.622 Type 2 diabetes mellitus with other skin ulcer (principal); I83.022 Varicose veins of left lower extremity with ulcer of calf; I83.012 Varicose veins of right lower extremity with ulcer of calf; L97.821 Non-pressure chronic ulcer of other part of left lower leg limited to breakdown of skin; L97.811 Non-pressure chronic ulcer of other part of right lower leg limited to breakdown of skin; E11.22 Type 2 diabetes mellitus with diabetic chronic kidney disease; I12.9 Hypertensive chronic kidney disease with stage 1 through stage 4 chronic kidney disease, or unspecified chronic kidney disease; N18.9 Chronic kidney disease, unspecified; E11.40 Type 2 diabetes mellitus with diabetic neuropathy, unspecified; E11.51 Type 2 diabetes mellitus with diabetic peripheral angiopathy without gangrene; M19.90 Unspecified osteoarthritis, unspecified site; J44.9 Chronic obstructive pulmonary disease, unspecified; G47.33 Obstructive sleep apnea (adult) (pediatric); K21.9 Gastro-esophageal reflux disease without esophagitis; E66.01 Morbid (severe) obesity due to excess calories; F32.9 Major depressive disorder, single episode, unspecified; F17.210 Nicotine dependence, cigarettes, uncomplicated; Z79.82 Long term (current) use of aspirin; Z90.710 Acquired absence of both cervix and uterus; Z68.42 Body mass index [BMI] 45.0-49.9, adult | CPT/HCPCS: 97597 ==

== ENCOUNTER 2019-09-20 10:30 | Day surgery (SDC) | payer MEDICARE, MEDICAID ==
[2019-09-20] MEDS ORDERED: LIDOcaine 2% 5ml jelly ONE (10:58)
== END 2019-09-20 11:58 | disposition home or self-care (01) ==
LOC: WOUND CARE 10:30
PROVIDERS: ATTEND Nurse Practitioner
DX: E11.622 Type 2 diabetes mellitus with other skin ulcer (principal); I83.022 Varicose veins of left lower extremity with ulcer of calf; I83.012 Varicose veins of right lower extremity with ulcer of calf; L97.821 Non-pressure chronic ulcer of other part of left lower leg limited to breakdown of skin; L97.811 Non-pressure chronic ulcer of other part of right lower leg limited to breakdown of skin; E11.22 Type 2 diabetes mellitus with diabetic chronic kidney disease; I12.9 Hypertensive chronic kidney disease with stage 1 through stage 4 chronic kidney disease, or unspecified chronic kidney disease; N18.9 Chronic kidney disease, unspecified; E11.40 Type 2 diabetes mellitus with diabetic neuropathy, unspecified; E11.51 Type 2 diabetes mellitus with diabetic peripheral angiopathy without gangrene; M19.90 Unspecified osteoarthritis, unspecified site; J44.9 Chronic obstructive pulmonary disease, unspecified; G47.33 Obstructive sleep apnea (adult) (pediatric); K21.9 Gastro-esophageal reflux disease without esophagitis; E66.01 Morbid (severe) obesity due to excess calories; F32.9 Major depressive disorder, single episode, unspecified; F17.210 Nicotine dependence, cigarettes, uncomplicated; Z79.82 Long term (current) use of aspirin; Z90.710 Acquired absence of both cervix and uterus; Z68.42 Body mass index [BMI] 45.0-49.9, adult
CPT/HCPCS: 36416; 82948; 97597

== ENCOUNTER 2019-10-14 11:13 | Day surgery (SDC) | payer MEDICARE, MEDICAID ==
[~2019-10-14 11:13] MED LIST changes: +LIDOcaine 2% 5ml jelly ONE
[2019-10-14] MEDS ORDERED: LIDOcaine 2% 5ml jelly ONE (12:11)
== END 2019-10-14 11:20 | disposition home or self-care (01) ==
LOC: WOUND CARE 11:13
PROVIDERS: ATTEND Nurse Practitioner
DX: E11.622 Type 2 diabetes mellitus with other skin ulcer (principal); I83.022 Varicose veins of left lower extremity with ulcer of calf; L97.821 Non-pressure chronic ulcer of other part of left lower leg limited to breakdown of skin; I83.012 Varicose veins of right lower extremity with ulcer of calf; L97.811 Non-pressure chronic ulcer of other part of right lower leg limited to breakdown of skin; E11.22 Type 2 diabetes mellitus with diabetic chronic kidney disease; I12.9 Hypertensive chronic kidney disease with stage 1 through stage 4 chronic kidney disease, or unspecified chronic kidney disease; N18.9 Chronic kidney disease, unspecified; E11.40 Type 2 diabetes mellitus with diabetic neuropathy, unspecified; E11.51 Type 2 diabetes mellitus with diabetic peripheral angiopathy without gangrene; M19.90 Unspecified osteoarthritis, unspecified site; E78.00 Pure hypercholesterolemia, unspecified; J44.9 Chronic obstructive pulmonary disease, unspecified; G47.33 Obstructive sleep apnea (adult) (pediatric); K21.9 Gastro-esophageal reflux disease without esophagitis; E66.01 Morbid (severe) obesity due to excess calories; F32.9 Major depressive disorder, single episode, unspecified; F17.210 Nicotine dependence, cigarettes, uncomplicated; Z79.82 Long term (current) use of aspirin; Z90.710 Acquired absence of both cervix and uterus; Z68.42 Body mass index [BMI] 45.0-49.9, adult
CPT/HCPCS: 36416; 82948; 97597

== ENCOUNTER 2019-10-21 11:25 | Day surgery (SDC) | payer MEDICARE, MEDICAID ==
[~2019-10-21 11:25] MED LIST changes: -LIDOcaine 2% 5ml jelly ONE
[2019-10-21] MEDS ORDERED: LIDOcaine 2% 5ml jelly ONE (12:35)
== END 2019-10-21 14:15 | disposition home or self-care (01) ==
LOC: WOUND CARE 11:25
PROVIDERS: ATTEND Nurse Practitioner
DX: E11.622 Type 2 diabetes mellitus with other skin ulcer (principal); I83.022 Varicose veins of left lower extremity with ulcer of calf; L97.822 Non-pressure chronic ulcer of other part of left lower leg with fat layer exposed; I83.012 Varicose veins of right lower extremity with ulcer of calf; L97.812 Non-pressure chronic ulcer of other part of right lower leg with fat layer exposed; E11.22 Type 2 diabetes mellitus with diabetic chronic kidney disease; I12.9 Hypertensive chronic kidney disease with stage 1 through stage 4 chronic kidney disease, or unspecified chronic kidney disease; N18.9 Chronic kidney disease, unspecified; E11.40 Type 2 diabetes mellitus with diabetic neuropathy, unspecified; E11.51 Type 2 diabetes mellitus with diabetic peripheral angiopathy without gangrene; M19.90 Unspecified osteoarthritis, unspecified site; E78.00 Pure hypercholesterolemia, unspecified; J44.9 Chronic obstructive pulmonary disease, unspecified; G47.33 Obstructive sleep apnea (adult) (pediatric); K21.9 Gastro-esophageal reflux disease without esophagitis; E66.01 Morbid (severe) obesity due to excess calories; F32.9 Major depressive disorder, single episode, unspecified; F17.210 Nicotine dependence, cigarettes, uncomplicated; Z79.82 Long term (current) use of aspirin; Z90.710 Acquired absence of both cervix and uterus; Z68.42 Body mass index [BMI] 45.0-49.9, adult
CPT/HCPCS: 36416; 82948; 97597

== ENCOUNTER 2019-10-28 11:30 | Day surgery (SDC) | payer MEDICARE, MEDICAID ==
[2019-10-28] MEDS ORDERED: LIDOcaine 2% 5ml jelly ONE (12:33)
[2019-10-28] MEDS ORDERED: nystatin 15 GM powder TP ONE (13:27)
== END 2019-10-28 14:20 | disposition home or self-care (01) ==
LOC: WOUND CARE 11:30
PROVIDERS: ATTEND Nurse Practitioner
DX: E11.622 Type 2 diabetes mellitus with other skin ulcer (principal); I83.028 Varicose veins of left lower extremity with ulcer other part of lower leg; L97.821 Non-pressure chronic ulcer of other part of left lower leg limited to breakdown of skin; I83.018 Varicose veins of right lower extremity with ulcer other part of lower leg; L97.811 Non-pressure chronic ulcer of other part of right lower leg limited to breakdown of skin; I83.022 Varicose veins of left lower extremity with ulcer of calf; L97.221 Non-pressure chronic ulcer of left calf limited to breakdown of skin; I83.012 Varicose veins of right lower extremity with ulcer of calf; L97.211 Non-pressure chronic ulcer of right calf limited to breakdown of skin; E11.22 Type 2 diabetes mellitus with diabetic chronic kidney disease; I12.9 Hypertensive chronic kidney disease with stage 1 through stage 4 chronic kidney disease, or unspecified chronic kidney disease; N18.9 Chronic kidney disease, unspecified; E11.40 Type 2 diabetes mellitus with diabetic neuropathy, unspecified; E11.51 Type 2 diabetes mellitus with diabetic peripheral angiopathy without gangrene; M19.90 Unspecified osteoarthritis, unspecified site; J44.9 Chronic obstructive pulmonary disease, unspecified; G47.33 Obstructive sleep apnea (adult) (pediatric); K21.9 Gastro-esophageal reflux disease without esophagitis; E66.01 Morbid (severe) obesity due to excess calories; F32.9 Major depressive disorder, single episode, unspecified; F17.210 Nicotine dependence, cigarettes, uncomplicated; Z79.82 Long term (current) use of aspirin; Z90.710 Acquired absence of both cervix and uterus; Z68.42 Body mass index [BMI] 45.0-49.9, adult
CPT/HCPCS: 97597

== ENCOUNTER 2019-11-04 11:15 | Day surgery (SDC) | payer MEDICARE, MEDICAID ==
[2019-11-04] MEDS ORDERED: LIDOcaine 2% 5ml jelly ONE (11:50)
== END 2019-11-04 14:00 | disposition home or self-care (01) ==
LOC: WOUND CARE 11:15
PROVIDERS: ATTEND Nurse Practitioner
DX: E11.622 Type 2 diabetes mellitus with other skin ulcer (principal); I83.028 Varicose veins of left lower extremity with ulcer other part of lower leg; L97.821 Non-pressure chronic ulcer of other part of left lower leg limited to breakdown of skin; I83.018 Varicose veins of right lower extremity with ulcer other part of lower leg; L97.811 Non-pressure chronic ulcer of other part of right lower leg limited to breakdown of skin; I83.022 Varicose veins of left lower extremity with ulcer of calf; L97.221 Non-pressure chronic ulcer of left calf limited to breakdown of skin; I83.012 Varicose veins of right lower extremity with ulcer of calf; L97.211 Non-pressure chronic ulcer of right calf limited to breakdown of skin; E11.22 Type 2 diabetes mellitus with diabetic chronic kidney disease; I12.9 Hypertensive chronic kidney disease with stage 1 through stage 4 chronic kidney disease, or unspecified chronic kidney disease; N18.9 Chronic kidney disease, unspecified; E11.40 Type 2 diabetes mellitus with diabetic neuropathy, unspecified; E11.51 Type 2 diabetes mellitus with diabetic peripheral angiopathy without gangrene; M19.90 Unspecified osteoarthritis, unspecified site; J44.9 Chronic obstructive pulmonary disease, unspecified; G47.33 Obstructive sleep apnea (adult) (pediatric); K21.9 Gastro-esophageal reflux disease without esophagitis; E66.01 Morbid (severe) obesity due to excess calories; F32.9 Major depressive disorder, single episode, unspecified; F17.210 Nicotine dependence, cigarettes, uncomplicated; Z79.82 Long term (current) use of aspirin; Z90.710 Acquired absence of both cervix and uterus; Z68.42 Body mass index [BMI] 45.0-49.9, adult
CPT/HCPCS: 36416; 82948; 97597

== ENCOUNTER 2019-11-11 13:32 | Day surgery (SDC) | payer MEDICARE, MEDICAID ==
[2019-11-11] MEDS ORDERED: LIDOcaine 2% 5ml jelly ONE (14:08)
== END 2019-11-11 15:15 | disposition home or self-care (01) ==
LOC: WOUND CARE 13:32
PROVIDERS: ATTEND Nurse Practitioner
DX: E11.622 Type 2 diabetes mellitus with other skin ulcer (principal); I83.028 Varicose veins of left lower extremity with ulcer other part of lower leg; L97.822 Non-pressure chronic ulcer of other part of left lower leg with fat layer exposed; I83.018 Varicose veins of right lower extremity with ulcer other part of lower leg; L97.811 Non-pressure chronic ulcer of other part of right lower leg limited to breakdown of skin; I83.022 Varicose veins of left lower extremity with ulcer of calf; L97.221 Non-pressure chronic ulcer of left calf limited to breakdown of skin; I83.012 Varicose veins of right lower extremity with ulcer of calf; L97.211 Non-pressure chronic ulcer of right calf limited to breakdown of skin; E11.22 Type 2 diabetes mellitus with diabetic chronic kidney disease; I12.9 Hypertensive chronic kidney disease with stage 1 through stage 4 chronic kidney disease, or unspecified chronic kidney disease; N18.9 Chronic kidney disease, unspecified; E11.40 Type 2 diabetes mellitus with diabetic neuropathy, unspecified; E11.51 Type 2 diabetes mellitus with diabetic peripheral angiopathy without gangrene; M19.90 Unspecified osteoarthritis, unspecified site; J44.9 Chronic obstructive pulmonary disease, unspecified; G47.33 Obstructive sleep apnea (adult) (pediatric); K21.9 Gastro-esophageal reflux disease without esophagitis; E66.01 Morbid (severe) obesity due to excess calories; F32.9 Major depressive disorder, single episode, unspecified; F17.210 Nicotine dependence, cigarettes, uncomplicated; Z79.82 Long term (current) use of aspirin; Z90.710 Acquired absence of both cervix and uterus; Z68.42 Body mass index [BMI] 45.0-49.9, adult
CPT/HCPCS: 82948; 97597

== ENCOUNTER 2019-11-18 12:30 | Outpatient (CLI) | payer MEDICARE, MEDICAID | END 2019-11-18 13:33 | disposition home or self-care (01) | LOC: WOUND CARE 12:30 → EDSTATUS 12:40 → WOUND CARE 13:33 | PROVIDERS: ATTEND Nurse Practitioner | DX: E11.622 Type 2 diabetes mellitus with other skin ulcer (principal); I83.028 Varicose veins of left lower extremity with ulcer other part of lower leg; L97.821 Non-pressure chronic ulcer of other part of left lower leg limited to breakdown of skin; I83.018 Varicose veins of right lower extremity with ulcer other part of lower leg; L97.811 Non-pressure chronic ulcer of other part of right lower leg limited to breakdown of skin; I83.022 Varicose veins of left lower extremity with ulcer of calf; L97.221 Non-pressure chronic ulcer of left calf limited to breakdown of skin; I83.012 Varicose veins of right lower extremity with ulcer of calf; L97.211 Non-pressure chronic ulcer of right calf limited to breakdown of skin; E11.22 Type 2 diabetes mellitus with diabetic chronic kidney disease; I12.9 Hypertensive chronic kidney disease with stage 1 through stage 4 chronic kidney disease, or unspecified chronic kidney disease; N18.9 Chronic kidney disease, unspecified; E11.40 Type 2 diabetes mellitus with diabetic neuropathy, unspecified; E11.51 Type 2 diabetes mellitus with diabetic peripheral angiopathy without gangrene; M19.90 Unspecified osteoarthritis, unspecified site; J44.9 Chronic obstructive pulmonary disease, unspecified; G47.33 Obstructive sleep apnea (adult) (pediatric); K21.9 Gastro-esophageal reflux disease without esophagitis; E66.01 Morbid (severe) obesity due to excess calories; F32.9 Major depressive disorder, single episode, unspecified; F17.210 Nicotine dependence, cigarettes, uncomplicated; Z79.82 Long term (current) use of aspirin; Z90.710 Acquired absence of both cervix and uterus; Z68.42 Body mass index [BMI] 45.0-49.9, adult | CPT/HCPCS: 29581; 82948 ==

== ENCOUNTER 2019-11-25 13:30 | Day surgery (SDC) | payer MEDICARE, MEDICAID ==
[2019-11-25] MEDS ORDERED: LIDOcaine 2% 5ml jelly ONE (13:53)
== END 2019-11-25 14:53 | disposition home or self-care (01) ==
LOC: WOUND CARE 13:30
PROVIDERS: ATTEND Nurse Practitioner
DX: E11.622 Type 2 diabetes mellitus with other skin ulcer (principal); I83.028 Varicose veins of left lower extremity with ulcer other part of lower leg; L97.822 Non-pressure chronic ulcer of other part of left lower leg with fat layer exposed; I83.018 Varicose veins of right lower extremity with ulcer other part of lower leg; L97.812 Non-pressure chronic ulcer of other part of right lower leg with fat layer exposed; I83.022 Varicose veins of left lower extremity with ulcer of calf; L97.221 Non-pressure chronic ulcer of left calf limited to breakdown of skin; I83.012 Varicose veins of right lower extremity with ulcer of calf; L97.211 Non-pressure chronic ulcer of right calf limited to breakdown of skin; E11.22 Type 2 diabetes mellitus with diabetic chronic kidney disease; E78.00 Pure hypercholesterolemia, unspecified; I12.9 Hypertensive chronic kidney disease with stage 1 through stage 4 chronic kidney disease, or unspecified chronic kidney disease; N18.9 Chronic kidney disease, unspecified; E11.40 Type 2 diabetes mellitus with diabetic neuropathy, unspecified; E11.51 Type 2 diabetes mellitus with diabetic peripheral angiopathy without gangrene; M19.90 Unspecified osteoarthritis, unspecified site; J44.9 Chronic obstructive pulmonary disease, unspecified; G47.33 Obstructive sleep apnea (adult) (pediatric); K21.9 Gastro-esophageal reflux disease without esophagitis; E66.01 Morbid (severe) obesity due to excess calories; F32.9 Major depressive disorder, single episode, unspecified; F17.210 Nicotine dependence, cigarettes, uncomplicated; Z79.82 Long term (current) use of aspirin; Z90.710 Acquired absence of both cervix and uterus; Z68.42 Body mass index [BMI] 45.0-49.9, adult
CPT/HCPCS: 36416; 82948; 97597

== ENCOUNTER 2019-12-02 12:55 | Day surgery (SDC) | payer MEDICARE, MEDICAID ==
[2019-12-02] MEDS ORDERED: LIDOcaine 2% 5ml jelly ONE (13:49)
== END 2019-12-02 14:46 | disposition home or self-care (01) ==
LOC: WOUND CARE 12:55
PROVIDERS: ATTEND Nurse Practitioner
DX: E11.622 Type 2 diabetes mellitus with other skin ulcer (principal); I83.028 Varicose veins of left lower extremity with ulcer other part of lower leg; L97.822 Non-pressure chronic ulcer of other part of left lower leg with fat layer exposed; I83.018 Varicose veins of right lower extremity with ulcer other part of lower leg; L97.812 Non-pressure chronic ulcer of other part of right lower leg with fat layer exposed; I83.022 Varicose veins of left lower extremity with ulcer of calf; L97.221 Non-pressure chronic ulcer of left calf limited to breakdown of skin; I83.012 Varicose veins of right lower extremity with ulcer of calf; L97.211 Non-pressure chronic ulcer of right calf limited to breakdown of skin; E11.22 Type 2 diabetes mellitus with diabetic chronic kidney disease; E78.00 Pure hypercholesterolemia, unspecified; I12.9 Hypertensive chronic kidney disease with stage 1 through stage 4 chronic kidney disease, or unspecified chronic kidney disease; N18.9 Chronic kidney disease, unspecified; E11.40 Type 2 diabetes mellitus with diabetic neuropathy, unspecified; E11.51 Type 2 diabetes mellitus with diabetic peripheral angiopathy without gangrene; M19.90 Unspecified osteoarthritis, unspecified site; J44.9 Chronic obstructive pulmonary disease, unspecified; G47.33 Obstructive sleep apnea (adult) (pediatric); K21.9 Gastro-esophageal reflux disease without esophagitis; E66.01 Morbid (severe) obesity due to excess calories; F32.9 Major depressive disorder, single episode, unspecified; F17.210 Nicotine dependence, cigarettes, uncomplicated; Z79.82 Long term (current) use of aspirin; Z90.710 Acquired absence of both cervix and uterus; Z68.42 Body mass index [BMI] 45.0-49.9, adult
CPT/HCPCS: 97597

== ENCOUNTER 2019-12-09 13:00 | Outpatient (CLI) | payer MEDICARE, MEDICAID ==
[2019-12-09] MEDS ORDERED: LIDOcaine 2% 5ml jelly ONE (13:48)
== END 2019-12-09 15:00 | disposition home or self-care (01) ==
LOC: WOUND CARE 13:00 → EDSTATUS 13:00 → WOUND CARE 15:00
PROVIDERS: ATTEND Nurse Practitioner
DX: E11.622 Type 2 diabetes mellitus with other skin ulcer (principal); I83.028 Varicose veins of left lower extremity with ulcer other part of lower leg; L97.822 Non-pressure chronic ulcer of other part of left lower leg with fat layer exposed; I83.018 Varicose veins of right lower extremity with ulcer other part of lower leg; L97.812 Non-pressure chronic ulcer of other part of right lower leg with fat layer exposed; I83.022 Varicose veins of left lower extremity with ulcer of calf; L97.221 Non-pressure chronic ulcer of left calf limited to breakdown of skin; I83.012 Varicose veins of right lower extremity with ulcer of calf; L97.211 Non-pressure chronic ulcer of right calf limited to breakdown of skin; E11.22 Type 2 diabetes mellitus with diabetic chronic kidney disease; E78.00 Pure hypercholesterolemia, unspecified; I12.9 Hypertensive chronic kidney disease with stage 1 through stage 4 chronic kidney disease, or unspecified chronic kidney disease; N18.9 Chronic kidney disease, unspecified; E11.40 Type 2 diabetes mellitus with diabetic neuropathy, unspecified; E11.51 Type 2 diabetes mellitus with diabetic peripheral angiopathy without gangrene; M19.90 Unspecified osteoarthritis, unspecified site; J44.9 Chronic obstructive pulmonary disease, unspecified; G47.33 Obstructive sleep apnea (adult) (pediatric); K21.9 Gastro-esophageal reflux disease without esophagitis; E66.01 Morbid (severe) obesity due to excess calories; F32.9 Major depressive disorder, single episode, unspecified; F17.210 Nicotine dependence, cigarettes, uncomplicated; Z79.82 Long term (current) use of aspirin; Z90.710 Acquired absence of both cervix and uterus; Z68.42 Body mass index [BMI] 45.0-49.9, adult
CPT/HCPCS: 82948; 97597

== ENCOUNTER 2020-01-10 11:00 | Outpatient (CLI) | payer MEDICARE, MEDICAID ==
[2020-01-10] MEDS ORDERED: LIDOcaine 2% 5ml jelly ONE (12:07)
== END 2020-01-10 23:59 | disposition home or self-care (01) ==
LOC: WOUND CARE 11:00
PROVIDERS: ATTEND Nurse Practitioner
DX: E11.622 Type 2 diabetes mellitus with other skin ulcer (principal); I83.028 Varicose veins of left lower extremity with ulcer other part of lower leg; L97.821 Non-pressure chronic ulcer of other part of left lower leg limited to breakdown of skin; I83.018 Varicose veins of right lower extremity with ulcer other part of lower leg; L97.811 Non-pressure chronic ulcer of other part of right lower leg limited to breakdown of skin; I83.022 Varicose veins of left lower extremity with ulcer of calf; L97.221 Non-pressure chronic ulcer of left calf limited to breakdown of skin; I83.012 Varicose veins of right lower extremity with ulcer of calf; L97.211 Non-pressure chronic ulcer of right calf limited to breakdown of skin; E11.22 Type 2 diabetes mellitus with diabetic chronic kidney disease; E78.00 Pure hypercholesterolemia, unspecified; I12.9 Hypertensive chronic kidney disease with stage 1 through stage 4 chronic kidney disease, or unspecified chronic kidney disease; N18.9 Chronic kidney disease, unspecified; E11.40 Type 2 diabetes mellitus with diabetic neuropathy, unspecified; E11.51 Type 2 diabetes mellitus with diabetic peripheral angiopathy without gangrene; M19.90 Unspecified osteoarthritis, unspecified site; J44.9 Chronic obstructive pulmonary disease, unspecified; G47.33 Obstructive sleep apnea (adult) (pediatric); K21.9 Gastro-esophageal reflux disease without esophagitis; E66.01 Morbid (severe) obesity due to excess calories; F32.9 Major depressive disorder, single episode, unspecified; F17.210 Nicotine dependence, cigarettes, uncomplicated; Z79.82 Long term (current) use of aspirin; Z90.710 Acquired absence of both cervix and uterus; Z68.42 Body mass index [BMI] 45.0-49.9, adult
CPT/HCPCS: 36416; 82948; 97597

== ENCOUNTER 2020-01-23 13:33 | Outpatient (CLI) | payer MEDICARE, MEDICAID | END 2020-01-23 23:59 | disposition home or self-care (01) | LOC: WOUND CARE 13:33 | PROVIDERS: ATTEND Nurse Practitioner Family | DX: E11.622 Type 2 diabetes mellitus with other skin ulcer (principal); I83.028 Varicose veins of left lower extremity with ulcer other part of lower leg; L97.822 Non-pressure chronic ulcer of other part of left lower leg with fat layer exposed; I83.018 Varicose veins of right lower extremity with ulcer other part of lower leg; L97.812 Non-pressure chronic ulcer of other part of right lower leg with fat layer exposed; I83.022 Varicose veins of left lower extremity with ulcer of calf; L97.221 Non-pressure chronic ulcer of left calf limited to breakdown of skin; I83.012 Varicose veins of right lower extremity with ulcer of calf; L97.211 Non-pressure chronic ulcer of right calf limited to breakdown of skin; E11.22 Type 2 diabetes mellitus with diabetic chronic kidney disease; E78.00 Pure hypercholesterolemia, unspecified; I12.9 Hypertensive chronic kidney disease with stage 1 through stage 4 chronic kidney disease, or unspecified chronic kidney disease; N18.9 Chronic kidney disease, unspecified; E11.40 Type 2 diabetes mellitus with diabetic neuropathy, unspecified; E11.51 Type 2 diabetes mellitus with diabetic peripheral angiopathy without gangrene; M19.90 Unspecified osteoarthritis, unspecified site; J44.9 Chronic obstructive pulmonary disease, unspecified; G47.33 Obstructive sleep apnea (adult) (pediatric); K21.9 Gastro-esophageal reflux disease without esophagitis; E66.01 Morbid (severe) obesity due to excess calories; F32.9 Major depressive disorder, single episode, unspecified; F17.210 Nicotine dependence, cigarettes, uncomplicated; Z79.82 Long term (current) use of aspirin; Z90.710 Acquired absence of both cervix and uterus; Z68.42 Body mass index [BMI] 45.0-49.9, adult | CPT/HCPCS: 29581; 36416; 82948 ==

== ENCOUNTER 2020-01-30 13:20 | Outpatient (CLI) | payer MEDICARE, MEDICAID | END 2020-01-30 23:59 | disposition home or self-care (01) | LOC: WOUND CARE 13:20 | PROVIDERS: ATTEND Nurse Practitioner Family | DX: E11.622 Type 2 diabetes mellitus with other skin ulcer (principal); I83.028 Varicose veins of left lower extremity with ulcer other part of lower leg; L97.821 Non-pressure chronic ulcer of other part of left lower leg limited to breakdown of skin; I83.018 Varicose veins of right lower extremity with ulcer other part of lower leg; L97.811 Non-pressure chronic ulcer of other part of right lower leg limited to breakdown of skin; I83.022 Varicose veins of left lower extremity with ulcer of calf; L97.221 Non-pressure chronic ulcer of left calf limited to breakdown of skin; I83.012 Varicose veins of right lower extremity with ulcer of calf; L97.211 Non-pressure chronic ulcer of right calf limited to breakdown of skin; E11.22 Type 2 diabetes mellitus with diabetic chronic kidney disease; I12.9 Hypertensive chronic kidney disease with stage 1 through stage 4 chronic kidney disease, or unspecified chronic kidney disease; N18.9 Chronic kidney disease, unspecified; E11.40 Type 2 diabetes mellitus with diabetic neuropathy, unspecified; E11.51 Type 2 diabetes mellitus with diabetic peripheral angiopathy without gangrene; E78.00 Pure hypercholesterolemia, unspecified; K21.9 Gastro-esophageal reflux disease without esophagitis; M19.90 Unspecified osteoarthritis, unspecified site; J44.9 Chronic obstructive pulmonary disease, unspecified; G47.33 Obstructive sleep apnea (adult) (pediatric); E66.01 Morbid (severe) obesity due to excess calories; F32.9 Major depressive disorder, single episode, unspecified; F17.210 Nicotine dependence, cigarettes, uncomplicated; Z79.82 Long term (current) use of aspirin; Z90.710 Acquired absence of both cervix and uterus; Z68.42 Body mass index [BMI] 45.0-49.9, adult | CPT/HCPCS: 29581; 36416; 82948 ==

== ENCOUNTER 2020-02-06 13:09 | Outpatient (CLI) | payer MEDICARE, MEDICAID ==
[2020-02-06] MEDS ORDERED: LIDOcaine 2% 5ml jelly ONE (14:34)
== END 2020-02-06 23:59 | disposition home or self-care (01) ==
LOC: WOUND CARE 13:09
PROVIDERS: ATTEND Nurse Practitioner Family
DX: E11.622 Type 2 diabetes mellitus with other skin ulcer (principal); I83.018 Varicose veins of right lower extremity with ulcer other part of lower leg; L97.811 Non-pressure chronic ulcer of other part of right lower leg limited to breakdown of skin; I83.028 Varicose veins of left lower extremity with ulcer other part of lower leg; L97.828 Non-pressure chronic ulcer of other part of left lower leg with other specified severity; I83.022 Varicose veins of left lower extremity with ulcer of calf; L97.221 Non-pressure chronic ulcer of left calf limited to breakdown of skin; I83.012 Varicose veins of right lower extremity with ulcer of calf; L97.211 Non-pressure chronic ulcer of right calf limited to breakdown of skin; E11.22 Type 2 diabetes mellitus with diabetic chronic kidney disease; I12.9 Hypertensive chronic kidney disease with stage 1 through stage 4 chronic kidney disease, or unspecified chronic kidney disease; N18.9 Chronic kidney disease, unspecified; E11.40 Type 2 diabetes mellitus with diabetic neuropathy, unspecified; E11.51 Type 2 diabetes mellitus with diabetic peripheral angiopathy without gangrene; E78.00 Pure hypercholesterolemia, unspecified; K21.9 Gastro-esophageal reflux disease without esophagitis; M19.90 Unspecified osteoarthritis, unspecified site; J44.9 Chronic obstructive pulmonary disease, unspecified; G47.33 Obstructive sleep apnea (adult) (pediatric); E66.01 Morbid (severe) obesity due to excess calories; F32.9 Major depressive disorder, single episode, unspecified; F17.210 Nicotine dependence, cigarettes, uncomplicated; Z79.82 Long term (current) use of aspirin; Z90.710 Acquired absence of both cervix and uterus; Z68.42 Body mass index [BMI] 45.0-49.9, adult
CPT/HCPCS: 29581; 36416; 82948

== ENCOUNTER 2020-02-14 12:59 | Outpatient (CLI) | payer MEDICARE, MEDICAID | END 2020-02-14 23:59 | disposition home or self-care (01) | LOC: WOUND CARE 12:59 | PROVIDERS: ATTEND Nurse Practitioner | DX: E11.622 Type 2 diabetes mellitus with other skin ulcer (principal); I83.018 Varicose veins of right lower extremity with ulcer other part of lower leg; L97.811 Non-pressure chronic ulcer of other part of right lower leg limited to breakdown of skin; I83.028 Varicose veins of left lower extremity with ulcer other part of lower leg; L97.821 Non-pressure chronic ulcer of other part of left lower leg limited to breakdown of skin; I83.012 Varicose veins of right lower extremity with ulcer of calf; L97.211 Non-pressure chronic ulcer of right calf limited to breakdown of skin; I83.022 Varicose veins of left lower extremity with ulcer of calf; L97.221 Non-pressure chronic ulcer of left calf limited to breakdown of skin; E11.22 Type 2 diabetes mellitus with diabetic chronic kidney disease; I12.9 Hypertensive chronic kidney disease with stage 1 through stage 4 chronic kidney disease, or unspecified chronic kidney disease; N18.9 Chronic kidney disease, unspecified; E11.40 Type 2 diabetes mellitus with diabetic neuropathy, unspecified; E11.51 Type 2 diabetes mellitus with diabetic peripheral angiopathy without gangrene; E78.00 Pure hypercholesterolemia, unspecified; K21.9 Gastro-esophageal reflux disease without esophagitis; J44.9 Chronic obstructive pulmonary disease, unspecified; M19.90 Unspecified osteoarthritis, unspecified site; G47.33 Obstructive sleep apnea (adult) (pediatric); E66.01 Morbid (severe) obesity due to excess calories; F32.9 Major depressive disorder, single episode, unspecified; F17.210 Nicotine dependence, cigarettes, uncomplicated; Z79.82 Long term (current) use of aspirin; Z90.710 Acquired absence of both cervix and uterus; Z68.42 Body mass index [BMI] 45.0-49.9, adult | CPT/HCPCS: 29581 ==

== ENCOUNTER 2020-02-21 13:59 | Outpatient (CLI) | payer MEDICARE, MEDICAID | END 2020-02-21 23:59 | disposition home or self-care (01) | LOC: WOUND CARE 13:59 | PROVIDERS: ATTEND Nurse Practitioner Family | DX: E11.622 Type 2 diabetes mellitus with other skin ulcer (principal); I83.018 Varicose veins of right lower extremity with ulcer other part of lower leg; L97.811 Non-pressure chronic ulcer of other part of right lower leg limited to breakdown of skin; I83.028 Varicose veins of left lower extremity with ulcer other part of lower leg; L97.821 Non-pressure chronic ulcer of other part of left lower leg limited to breakdown of skin; I83.012 Varicose veins of right lower extremity with ulcer of calf; L97.211 Non-pressure chronic ulcer of right calf limited to breakdown of skin; I83.022 Varicose veins of left lower extremity with ulcer of calf; L97.221 Non-pressure chronic ulcer of left calf limited to breakdown of skin; E11.22 Type 2 diabetes mellitus with diabetic chronic kidney disease; I12.9 Hypertensive chronic kidney disease with stage 1 through stage 4 chronic kidney disease, or unspecified chronic kidney disease; N18.9 Chronic kidney disease, unspecified; E11.40 Type 2 diabetes mellitus with diabetic neuropathy, unspecified; E11.51 Type 2 diabetes mellitus with diabetic peripheral angiopathy without gangrene; E78.00 Pure hypercholesterolemia, unspecified; K21.9 Gastro-esophageal reflux disease without esophagitis; J44.9 Chronic obstructive pulmonary disease, unspecified; M19.90 Unspecified osteoarthritis, unspecified site; G47.33 Obstructive sleep apnea (adult) (pediatric); E66.01 Morbid (severe) obesity due to excess calories; F32.9 Major depressive disorder, single episode, unspecified; F17.210 Nicotine dependence, cigarettes, uncomplicated; Z79.82 Long term (current) use of aspirin; Z90.710 Acquired absence of both cervix and uterus; Z68.42 Body mass index [BMI] 45.0-49.9, adult | CPT/HCPCS: 29581 ==

== ENCOUNTER 2020-02-28 13:15 | Outpatient (CLI) | payer MEDICARE, MEDICAID | END 2020-02-28 23:59 | disposition home or self-care (01) | LOC: WOUND CARE 13:15 → EDSTATUS 13:30 → WOUND CARE 23:59 | PROVIDERS: ATTEND Nurse Practitioner | DX: E11.622 Type 2 diabetes mellitus with other skin ulcer (principal); I83.018 Varicose veins of right lower extremity with ulcer other part of lower leg; L97.811 Non-pressure chronic ulcer of other part of right lower leg limited to breakdown of skin; I83.028 Varicose veins of left lower extremity with ulcer other part of lower leg; L97.821 Non-pressure chronic ulcer of other part of left lower leg limited to breakdown of skin; I83.012 Varicose veins of right lower extremity with ulcer of calf; L97.211 Non-pressure chronic ulcer of right calf limited to breakdown of skin; I83.022 Varicose veins of left lower extremity with ulcer of calf; L97.221 Non-pressure chronic ulcer of left calf limited to breakdown of skin; E11.22 Type 2 diabetes mellitus with diabetic chronic kidney disease; I12.9 Hypertensive chronic kidney disease with stage 1 through stage 4 chronic kidney disease, or unspecified chronic kidney disease; N18.9 Chronic kidney disease, unspecified; E11.40 Type 2 diabetes mellitus with diabetic neuropathy, unspecified; E11.51 Type 2 diabetes mellitus with diabetic peripheral angiopathy without gangrene; E78.00 Pure hypercholesterolemia, unspecified; K21.9 Gastro-esophageal reflux disease without esophagitis; J44.9 Chronic obstructive pulmonary disease, unspecified; M19.90 Unspecified osteoarthritis, unspecified site; G47.33 Obstructive sleep apnea (adult) (pediatric); E66.01 Morbid (severe) obesity due to excess calories; F32.9 Major depressive disorder, single episode, unspecified; F17.210 Nicotine dependence, cigarettes, uncomplicated; Z79.82 Long term (current) use of aspirin; Z90.710 Acquired absence of both cervix and uterus; Z68.42 Body mass index [BMI] 45.0-49.9, adult | CPT/HCPCS: 82948; G0463 ==

== ENCOUNTER 2021-10-13 05:22 | Inpatient (IN) | payer MEDICARE, MEDICAID ==
[~2021-10-13] VITALS: Ht 160 cm; Wt 155.0 kg
[~2021-10-13 05:22] MED LIST changes: +ALBU8.5H17 IH; -ALBU8.5H8 IH; +LISI40TA13 PO; -LISI40TA4 PO
[2021-10-13] MEDS ORDERED: ipratropium/albuterol 3ml nebule ONE (05:30)
[2021-10-13] MEDS ORDERED: nitroGLYCERIN 0.4mg SUBLingual tab SL ONE (05:37)
[2021-10-13] MEDS ORDERED: nitroGLYCERIN-Tridil 50MG/D5W 250 ML IV SCH (05:40)
[2021-10-13] MEDS ORDERED: furosemide 10 MG/1 ML 10ml inj IV ONE (05:40)
[2021-10-13] MEDS ORDERED: ketamine 10mg/ml 20ml inj 0 MG in normal saline 100ml IV soln 100 ML IV ONE (05:40)
[2021-10-13] MEDS ORDERED: furosemide 40mg/4ml inj IV ONE (05:40)
[2021-10-13] MEDS ORDERED: KETAMINE IV ONE (05:45)
[2021-10-13] MEDS ORDERED: NORMAL SALINE IV ONE (05:45)
[2021-10-13] MEDS ORDERED: CefTRIAXone/D5W-Rocephin 1gm 50 ML IV ONE (05:50)
[2021-10-13] MEDS ORDERED: azithromycin/NS 500mg/250ml 250 ML IV SCH (05:53)
[2021-10-13 06:03] LABS: ABG BASE EXCESS -6.9 mmol/L (-2.0-2.0); ABG HCO3 23.1 mmol/L (22.0-26.0); ABG OXYGEN SATURATION 97.1 % (94-97); ABG PCO2 (T) 66.6 mmHg (32.0-45.0); ABG PO2 (T) 112.6 mmHg (75.0-100.0); ALLEN'S TEST POSITIVE; FCOHb 1.8 % (0.0-3.9); FMetHb 0.2 % (0.0-1.5); FO2Hb 95.2 % (94-97); PATIENT TEMPERATURE 36.7; TOTAL HEMOGLOBIN 14.4 G/dl (12.0-16.0)
[2021-10-13 06:04] LABS: BASOPHILS # (AUTO) 0.2 X10'3 (0-0.2); BASOPHILS % (AUTO) 0.7 % (0-1); EOSINOPHILS # (AUTO) 0.8 X10'3 (0-0.9); EOSINOPHILS % (AUTO) 3.1 % (0-6); HEMATOCRIT 43.7 % (35.0-45.0); HEMOGLOBIN 14.3 g/dl (12.0-16.0); LYMPHOCYTES # (AUTO) 6.3 X10'3 (1.1-4.8); LYMPHOCYTES % (AUTO) 23.8 % (21-51); MEAN CORPUSCULAR HEMOGLOBIN 30.5 PG (27.0-31.0); MEAN CORPUSCULAR HGB CONC 32.6 g/dL (33.0-36.5); MEAN CORPUSCULAR VOLUME 93.6 FL (78-98); MEAN PLATELET VOLUME 9.3 FL (7.4-10.4); MONOCYTES # (AUTO) 2.2 X10'3 (0-0.9); MONOCYTES % (AUTO) 8.2 % (2-12); NEUTROPHILS % (AUTO) 64.2 % (42-75); PLATELET COUNT 313 X10'3 (140-440); RED BLOOD COUNT 4.67 X10'6 (4.20-5.60); RED CELL DISTRIBUTION WIDTH 15.3 % (11.5-14.5)
[2021-10-13 06:12] LABS: WHITE BLOOD COUNT 26.4 X10'3 (4.5-11.0)
--- NOTE | 2021-10-13 06:20 | NUR ---
BP WNL, nitro drip placed on standby per ER
[2021-10-13 06:57] LABS: PLATELET ESTIMATE NORMAL; TOTAL CELLS COUNTED 100
[2021-10-13 06:58] LABS: ANISOCYTOSIS 1+; POLYCHROMASIA FEW; SMUDGE CELLS FEW
[2021-10-13 07:17] LABS: ABG BASE EXCESS -4.7 mmol/L (-2.0-2.0); ABG HCO3 23.4 mmol/L (22.0-26.0); ABG OXYGEN SATURATION 98.7 % (94-97); ABG PCO2 (T) 55.5 mmHg (32.0-45.0); ABG PO2 (T) 162.7 mmHg (75.0-100.0); ALLEN'S TEST POSITIVE; FCOHb 1.1 % (0.0-3.9); FMetHb 0.2 % (0.0-1.5); FO2Hb 97.4 % (94-97); TOTAL HEMOGLOBIN 13.8 G/dl (12.0-16.0)
[2021-10-13] MEDS ORDERED: magnesium hydroxide 30ml (MOM) UD suspension PO PRN (08:05)
[2021-10-13] MEDS ORDERED: ipratropium/albuterol 3ml nebule NEB PRN (08:05)
[2021-10-13] MEDS ORDERED: HYDROmorphone inj. 0.5 MG/0.5 ML DISP.SYRIN IV PRN (08:05)
[2021-10-13] MEDS ORDERED: acetaminophen 650mg rectal suppository RC PRN (08:05)
[2021-10-13] MEDS ORDERED: ondansetron 4mg rapidly disintigrating tab PO PRN (08:05)
[2021-10-13] MEDS ORDERED: POTASSIUM BICARB 20meq eff tab 20 MEQ TABLET.EFF PO PRN ×2 (08:05)
[2021-10-13] MEDS ORDERED: acetaminophen 325mg tablet PO PRN ×2 (08:05)
[2021-10-13] MEDS ORDERED: magnesium Cl slow-release 64mg tablet PO PRN (08:05)
[2021-10-13] MEDS ORDERED: bisacodyl 10mg suppository rectal RC PRN (08:05)
[2021-10-13] MEDS ORDERED: HYDROmorphone/PF 0.2 MG/ML SYRINGE IV PRN (08:05)
[2021-10-13] MEDS ORDERED: normal saline 1000ml 1,000 ML IV SCH (08:05)
[2021-10-13] MEDS ORDERED: magnesium 2GM in 50ml NS 50 ML IV PRN (08:05)
[2021-10-13] MEDS ORDERED: potassium CL 10mEq/100ml bag 100 ML IV PRN (08:05)
[2021-10-13] MEDS ORDERED: magnesium 4gm in 100ml NS 100 ML IV PRN (08:05)
[2021-10-13 08:44] LABS: BASOPHILS % (AUTO) 0.2 % (0-1); EOSINOPHILS # (AUTO) 0.1 X10'3 (0-0.9); EOSINOPHILS % (AUTO) 0.7 % (0-6); HEMATOCRIT 39.7 % (35.0-45.0); HEMOGLOBIN 12.8 g/dl (12.0-16.0); LYMPHOCYTES # (AUTO) 0.9 X10'3 (1.1-4.8); LYMPHOCYTES % (AUTO) 4.6 % (21-51); MEAN CORPUSCULAR HEMOGLOBIN 30.2 PG (27.0-31.0); MEAN CORPUSCULAR HGB CONC 32.2 g/dL (33.0-36.5); MEAN CORPUSCULAR VOLUME 93.8 FL (78-98); MEAN PLATELET VOLUME 8.4 FL (7.4-10.4); MONOCYTES # (AUTO) 1.5 X10'3 (0-0.9); MONOCYTES % (AUTO) 7.9 % (2-12); NEUTROPHILS # (AUTO) 16.6 X10'3 (1.8-7.7); NEUTROPHILS % (AUTO) 86.6 % (42-75); PLATELET COUNT 175 X10'3 (140-440); RED BLOOD COUNT 4.23 X10'6 (4.20-5.60); WHITE BLOOD COUNT 19.2 X10'3 (4.5-11.0)
[2021-10-13 08:56] LABS: APTT 28 SECONDS (22-32)
[2021-10-13 09:04] LABS: ALANINE AMINOTRANSFERASE 39 U/L (12-78); ALBUMIN 3.3 G/DL (3.4-5.0); ALBUMIN/GLOBULIN RATIO 0.8 (1.1-1.5); ALKALINE PHOSPHATASE 130 IU/L (46-116); ANION GAP 14 (8-16); ASPARTATE AMINO TRANSFERASE 38 U/L (10-37); BILIRUBIN,TOTAL 0.4 MG/DL (0.1-1.0); BLOOD UREA NITROGEN 26 MG/DL (7-18); BUN/CREATININE RATIO 21.1 (6.6-38.0); CALCIUM 9.2 MG/DL (8.5-10.1); CHLORIDE 108 MMOL/L (99-107); CREATININE 1.23 MG/DL (0.40-0.90); GLUCOSE 206 MG/DL (70-104); POTASSIUM 4.4 MMOL/L (3.5-5.1); SODIUM 149 MMOL/L (135-145); TOTAL CARBON DIOXIDE 26.8 MMOL/L (24-32); TOTAL PROTEIN 7.4 G/DL (6.4-8.2); eGFR 44 ML/MIN
--- NOTE | 2021-10-13 09:24 | NUR ---
repeat bgl 199
--- NOTE | 2021-10-13 09:30 | NUR ---
hospitalist paged for critical trop
[2021-10-13] MEDS: ipratropium/albuterol 3ml nebule NEB SCH ×4 (10:01→23:00)
[2021-10-13] MEDS ORDERED: ATOR40TA72 PO (10:27)
[2021-10-13] MEDS ORDERED: ALLO100T PO (10:27)
[2021-10-13] MEDS ORDERED: BACL10TA2 PO (10:27)
[2021-10-13] MEDS ORDERED: GABA-534 PO (10:27)
[2021-10-13] MEDS ORDERED: CHOL20003 PO (10:30)
--- NOTE | 2021-10-13 11:01 | NUR ---
additional page sent at this time for repeat critical trop
--- NOTE | 2021-10-13 11:11 | NUR ---
patient still asleep at this time, difficult to arouse. only responisve to movement and pain
[2021-10-13] MEDS: dextrose 5%-water 1,000 ML IV SCH ×2 (11:12→21:23)
--- NOTE | 2021-10-13 11:51 | NUR ---
report given to PCU nurse at this time
[2021-10-13] MEDS ORDERED: glucagon, human recombinant 1mg kit SUBCUT PRN (12:00)
[2021-10-13] MEDS ORDERED: DEXTROSE 15 GM of carb/4 tabs (each vial/BOTTLE has 4 tablets) PO PRN ×2 (12:00)
[2021-10-13] MEDS ORDERED: dextrose 50%-water 50ml dispensing syringe IV PRN ×2 (12:00)
[2021-10-13] MEDS ORDERED: MESSAGE TO PHARMACY PO ONE (12:00)
[2021-10-13 12:06] LABS: HEMOGLOBIN A1C 6.7 % (4.5-6.2)
[2021-10-13 12:15] LABS: MAGNESIUM 2.3 MG/DL (1.5-2.4); PHOSPHORUS 4.4 MG/DL (2.3-4.5); POTASSIUM 4.8 MMOL/L (3.5-5.1)
[2021-10-13 12:18] LABS: CLARITY,URINE SLIGHTLY CLOUDY (Clear); COLOR,URINE YELLOW (Yellow); GLUCOSE, URINE NEGATIVE (Neg); KETONES,URINE NEGATIVE (Neg); LEUKOCYTE ESTERASE ,URINE NEGATIVE (Neg); NITRITES, URINE NEGATIVE (Neg); OCCULT BLOOD,URINE NEGATIVE (Neg); PH,URINE 8.5 (4.8-8.0); PROTEIN,URINE 30 mg/dl (Neg); UA COLLECTION TYPE CLN CATCH MIDSTREAM; UROBILINOGEN,URINE 0.2 E.U/dL (0.2-1.0)
[2021-10-13 12:24] LABS: AMORPHOUS PHOSPHATES 1+; BACTERIA,URINE FEW /HPF (Neg); MUCUS STRANDS NONE SEEN /LPF (Neg); RBC,URINE NONE SEEN /HPF (0-2); SQUAMOUS EPITHELIAL CELL,UR FEW /LPF (FEW); TRIPLE PHOSPHATE CRYST 3+ /HPF (NEGATIVE); WBC,URINE NONE SEEN /HPF (0-4)
[2021-10-13 13:00] VITALS: BP 138/84
[2021-10-13] MEDS: baclofen 10mg tablet PO SCH ×3 (13:00→21:23)
--- NOTE | 2021-10-13 13:00 | NUR ---
Patient oriented to room and call light on bipap. PT was soiled upon arrival. Pt was cleaned up and put in new clean, dry gown. Sputum and mrsa sent to lab. Patient alert, oriented, and appropriate at this time.
--- NOTE | 2021-10-13 14:16 | NUR ---
Problems reprioritized. Patient report given, questions answered & plan of care reviewed with Adamaris MORROW. Patient resting in bed. RT with patient to give treatment and put on NC so patient can eat lunch.
[2021-10-13 15:37] LABS: ALBUMIN 2.9 G/DL (3.4-5.0); ANION GAP 8 (8-16); BLOOD UREA NITROGEN 27 MG/DL (7-18); BUN/CREATININE RATIO 23.5 (6.6-38.0); CALCIUM 9.1 MG/DL (8.5-10.1); CHLORIDE 108 MMOL/L (99-107); CREATININE 1.15 MG/DL (0.40-0.90); GLUCOSE 138 MG/DL (70-104); POTASSIUM 4.4 MMOL/L (3.5-5.1); SODIUM 145 MMOL/L (135-145); TOTAL CARBON DIOXIDE 28.9 MMOL/L (24-32); eGFR 47 ML/MIN
[2021-10-13] MEDS: K and/or MAG REPLACEMENT MC SCH (20:00)
[2021-10-13] MEDS: docusate sod 100mg capsule PO SCH (20:00)
[2021-10-13] MEDS ORDERED: temazepam 15mg capsule PO PRN (21:00)
[2021-10-13] MEDS: insulin glargine (Lantus) pen - multi-dose SQ SCH (21:00)
[2021-10-14] MEDS: HYDROcodone/acetaminophen 5mg/325mg tablet PO PRN ×2 (00:11→11:54)
[2021-10-14] MEDS: dextrose 5%-water 1,000 ML IV SCH ×2 (03:37→12:50)
[2021-10-14 06:00] VITALS: BP 104/59
[2021-10-14] MEDS: ipratropium/albuterol 3ml nebule NEB SCH ×5 (07:04→22:38)
[2021-10-14 07:11] LABS: BASOPHILS # (AUTO) 0.1 X10'3 (0-0.2); BASOPHILS % (AUTO) 0.6 % (0-1); EOSINOPHILS # (AUTO) 0.3 X10'3 (0-0.9); EOSINOPHILS % (AUTO) 3.3 % (0-6); HEMATOCRIT 35.2 % (35.0-45.0); HEMOGLOBIN 11.5 g/dl (12.0-16.0); LYMPHOCYTES # (AUTO) 1.7 X10'3 (1.1-4.8); LYMPHOCYTES % (AUTO) 18.3 % (21-51); MEAN CORPUSCULAR HGB CONC 32.6 g/dL (33.0-36.5); MEAN PLATELET VOLUME 8.5 FL (7.4-10.4); MONOCYTES # (AUTO) 0.7 X10'3 (0-0.9); MONOCYTES % (AUTO) 7.8 % (2-12); NEUTROPHILS # (AUTO) 6.4 X10'3 (1.8-7.7); PLATELET COUNT 174 X10'3 (140-440); RED BLOOD COUNT 3.82 X10'6 (4.20-5.60); RED CELL DISTRIBUTION WIDTH 14.7 % (11.5-14.5); WHITE BLOOD COUNT 9.1 X10'3 (4.5-11.0)
[2021-10-14 07:25] LABS: ALANINE AMINOTRANSFERASE 33 U/L (12-78); ALBUMIN 2.8 G/DL (3.4-5.0); ALBUMIN/GLOBULIN RATIO 0.8 (1.1-1.5); ALKALINE PHOSPHATASE 97 IU/L (46-116); ANION GAP 10 (8-16); ASPARTATE AMINO TRANSFERASE 28 U/L (10-37); BILIRUBIN,TOTAL 0.5 MG/DL (0.1-1.0); BLOOD UREA NITROGEN 21 MG/DL (7-18); BUN/CREATININE RATIO 20.4 (6.6-38.0); CALCIUM 8.6 MG/DL (8.5-10.1); CHLORIDE 106 MMOL/L (99-107); CHOL/HDL RATIO 3.8 (0.00-4.99); CHOLESTEROL 110 MG/DL (0-200); CREATININE 1.03 MG/DL (0.40-0.90); GLUCOSE 124 MG/DL (70-104); HDL CHOLESTEROL 29 MG/DL (35-60); LDL CHOLESTEROL 63 MG/DL (50-100); MAGNESIUM 2.1 MG/DL (1.5-2.4); PHOSPHORUS 3.3 MG/DL (2.3-4.5); SODIUM 144 MMOL/L (135-145); TOTAL CARBON DIOXIDE 27.7 MMOL/L (24-32); TOTAL PROTEIN 6.3 G/DL (6.4-8.2); TRIGLYCERIDES 120 MG/DL (20-135); eGFR 53 ML/MIN
[2021-10-14] MEDS: K and/or MAG REPLACEMENT MC SCH ×2 (08:00→20:00)
[2021-10-14] MEDS: CefTRIAXone/D5W-Rocephin 1gm 50 ML IV SCH (08:49)
[2021-10-14] MEDS: azithromycin/NS 500mg/250ml 250 ML IV SCH (08:49)
[2021-10-14] MEDS: enoxaparin 40mg/0.4ml syringe SUBCUT SCH (08:49)
[2021-10-14] MEDS: atorvastatin 20mg tablet PO SCH (08:50)
[2021-10-14] MEDS: docusate sod 100mg capsule PO SCH ×2 (08:50→20:09)
[2021-10-14] MEDS: gabapentin 400mg capsule PO SCH (08:50)
[2021-10-14] MEDS: allopurinol 100mg tablet PO SCH (08:50)
[2021-10-14] MEDS: lisinopril 20mg tablet PO SCH (08:51)
[2021-10-14] MEDS: baclofen 10mg tablet PO SCH ×4 (08:52→21:00)
[2021-10-14 11:00] VITALS: BP 116/89
[2021-10-14 15:00] VITALS: BP 130/79
--- NOTE | 2021-10-14 15:50 | NUR ---
PRESSURE ULCER EDUCATION: DEFINITION: A pressure ulcer is an area of skin that breaks down when you stay in one position too long. The constant pressure against the skin reduces the blood flow to that area and the affected tissue dies. CAUSES: "Being bedridden or in a wheelchair "Fragile skin "Having a chronic condition, such as diabetes or vascular disease "Inability to move certain parts of your body without assistance "Older age "Incontinence of urine or stool SYMPTOMS: "A reddened area that DOES NOT turn white when pressed on - this can be the beginning of a pressure ulcer "A blister, deep sore or a crater - these can be advanced pressure ulcers FIRST AID: "Relieve the pressure on this area "Keep the area clean and dry "Call your primary doctor if you see any of the above symptoms "DO NOT massage the area "DO NOT use a donut shaped or ring shaped pillow- these actually interfere with the blood flow and cause complications PREVENTION: "Check for pressure ulcers everyday "Change position at least every two hours to relieve pressure "Use items that help relieve pressure- pillows, sheepskin, foam padding, and powders. "Keep skin clean and dry "Eat healthy well balanced meals "Exercise daily IF YOU SEE ANY OF THESE SYMPTOMS WHILE IN THE HOSPITAL - TELL YOUR NURSE IMMEDIATELY. IF YOU SEE ANY OF THESE SYMPTOMS WHILE AT HOME OR HAVE ANY QUESTIONS OR CONCERNS ABOUT PRESSURE ULCERS - CALL YOUR PRIMARY DOCTOR IMMEDIATELY. Addendum: 10/14/21 at 1550 by Cristela Main RN Amended: Links added.
--- NOTE | 2021-10-14 16:08 | NUR ---
relieving RN for lunch, transferred pt to a bariatric bed without problem
[2021-10-14] MEDS: HYDROcodone/acetaminophen 10/325mg tab PO PRN (20:10)
[2021-10-14] MEDS: insulin glargine (Lantus) pen - multi-dose SQ SCH (21:00)
[2021-10-15] MEDS: dextrose 5%-water 1,000 ML IV SCH ×2 (00:53→08:00)
[2021-10-15 06:00] VITALS: BP 176/110
[2021-10-15] MEDS: ipratropium/albuterol 3ml nebule NEB SCH ×5 (07:07→22:57)
[2021-10-15 07:28] LABS: BASOPHILS % (AUTO) 0.3 % (0-1); EOSINOPHILS # (AUTO) 0.3 X10'3 (0-0.9); EOSINOPHILS % (AUTO) 2.5 % (0-6); HEMATOCRIT 36.2 % (35.0-45.0); HEMOGLOBIN 12.1 g/dl (12.0-16.0); LYMPHOCYTES # (AUTO) 1.3 X10'3 (1.1-4.8); LYMPHOCYTES % (AUTO) 11.2 % (21-51); MEAN CORPUSCULAR HEMOGLOBIN 30.7 PG (27.0-31.0); MEAN CORPUSCULAR HGB CONC 33.4 g/dL (33.0-36.5); MEAN CORPUSCULAR VOLUME 91.8 FL (78-98); MEAN PLATELET VOLUME 8.4 FL (7.4-10.4); MONOCYTES # (AUTO) 0.8 X10'3 (0-0.9); NEUTROPHILS # (AUTO) 9.1 X10'3 (1.8-7.7); PLATELET COUNT 178 X10'3 (140-440); RED BLOOD COUNT 3.94 X10'6 (4.20-5.60); RED CELL DISTRIBUTION WIDTH 14.6 % (11.5-14.5); WHITE BLOOD COUNT 11.6 X10'3 (4.5-11.0)
[2021-10-15 07:45] LABS: ALANINE AMINOTRANSFERASE 34 U/L (12-78); ALBUMIN 3.1 G/DL (3.4-5.0); ALBUMIN/GLOBULIN RATIO 0.8 (1.1-1.5); ALKALINE PHOSPHATASE 104 IU/L (46-116); ANION GAP 8 (8-16); ASPARTATE AMINO TRANSFERASE 28 U/L (10-37); BILIRUBIN,TOTAL 0.5 MG/DL (0.1-1.0); BLOOD UREA NITROGEN 15 MG/DL (7-18); BUN/CREATININE RATIO 15.3 (6.6-38.0); CALCIUM 9.2 MG/DL (8.5-10.1); CHLORIDE 106 MMOL/L (99-107); CREATININE 0.98 MG/DL (0.40-0.90); GLUCOSE 173 MG/DL (70-104); MAGNESIUM 2.1 MG/DL (1.5-2.4); PHOSPHORUS 3.2 MG/DL (2.3-4.5); POTASSIUM 3.9 MMOL/L (3.5-5.1); SODIUM 144 MMOL/L (135-145); TOTAL CARBON DIOXIDE 29.9 MMOL/L (24-32); TOTAL PROTEIN 7.1 G/DL (6.4-8.2); eGFR 57 ML/MIN
[2021-10-15] MEDS: docusate sod 100mg capsule PO SCH ×2 (08:00→20:18)
[2021-10-15] MEDS: K and/or MAG REPLACEMENT MC SCH ×2 (08:00→20:00)
[2021-10-15] MEDS: CefTRIAXone/D5W-Rocephin 1gm 50 ML IV SCH (08:00)
[2021-10-15] MEDS: enoxaparin 40mg/0.4ml syringe SUBCUT SCH (08:01)
[2021-10-15] MEDS: azithromycin/NS 500mg/250ml 250 ML IV SCH (08:01)
[2021-10-15] MEDS: vitamin A & D ointment-NF 1 APPLIC TUBE TP SCH (08:01)
[2021-10-15] MEDS: baclofen 10mg tablet PO SCH ×4 (08:02→21:30)
[2021-10-15] MEDS: HYDROcodone/acetaminophen 10/325mg tab PO PRN (08:02)
[2021-10-15] MEDS: allopurinol 100mg tablet PO SCH (08:02)
[2021-10-15] MEDS: atorvastatin 20mg tablet PO SCH (08:02)
[2021-10-15] MEDS: gabapentin 400mg capsule PO SCH (08:03)
[2021-10-15] MEDS: lisinopril 20mg tablet PO SCH (08:03)
[2021-10-15 09:15] VITALS: BP 156/98
[2021-10-15] MEDS ORDERED: methylPREDNISolone sod succ 125mg/2ml vial IV ONE (10:50)
[2021-10-15 11:00] VITALS: BP 138/89
[2021-10-15] MEDS ORDERED: nicotine 14mg patch - 24hr TD ONE (13:00)
[2021-10-15] MEDS: guaiFENesin/DM 10ml UD oral syrup PO PRN (13:35)
[2021-10-15 15:00] VITALS: BP 144/102
[2021-10-15] MEDS: methylPREDNISolone sod succ 125mg/2ml vial IV SCH ×2 (15:35→20:12)
[2021-10-15] MEDS: insulin glargine (Lantus) pen - multi-dose SQ SCH (22:22)
[2021-10-16] MEDS: methylPREDNISolone sod succ 125mg/2ml vial IV SCH ×4 (02:09→19:49)
[2021-10-16] MEDS: HYDROcodone/acetaminophen 10/325mg tab PO PRN (02:45)
[2021-10-16 06:00] VITALS: BP 129/88
[2021-10-16 07:12] LABS: BASOPHILS % (AUTO) 0.3 % (0-1); EOSINOPHILS % (AUTO) 0.1 % (0-6); HEMATOCRIT 35.2 % (35.0-45.0); HEMOGLOBIN 11.7 g/dl (12.0-16.0); LYMPHOCYTES # (AUTO) 1.1 X10'3 (1.1-4.8); LYMPHOCYTES % (AUTO) 8.1 % (21-51); MEAN CORPUSCULAR HEMOGLOBIN 30.5 PG (27.0-31.0); MEAN CORPUSCULAR HGB CONC 33.4 g/dL (33.0-36.5); MEAN CORPUSCULAR VOLUME 91.4 FL (78-98); MEAN PLATELET VOLUME 8.7 FL (7.4-10.4); MONOCYTES # (AUTO) 0.5 X10'3 (0-0.9); MONOCYTES % (AUTO) 3.4 % (2-12); NEUTROPHILS # (AUTO) 11.8 X10'3 (1.8-7.7); NEUTROPHILS % (AUTO) 88.1 % (42-75); PLATELET COUNT 189 X10'3 (140-440); RED BLOOD COUNT 3.85 X10'6 (4.20-5.60); RED CELL DISTRIBUTION WIDTH 14.4 % (11.5-14.5); WHITE BLOOD COUNT 13.4 X10'3 (4.5-11.0)
[2021-10-16 07:32] LABS: ALANINE AMINOTRANSFERASE 29 U/L (12-78); ALBUMIN/GLOBULIN RATIO 0.7 (1.1-1.5); ALKALINE PHOSPHATASE 103 IU/L (46-116); ANION GAP 10 (8-16); ASPARTATE AMINO TRANSFERASE 22 U/L (10-37); BILIRUBIN,TOTAL 0.3 MG/DL (0.1-1.0); BLOOD UREA NITROGEN 18 MG/DL (7-18); BUN/CREATININE RATIO 18.8 (6.6-38.0); CALCIUM 9.4 MG/DL (8.5-10.1); CHLORIDE 105 MMOL/L (99-107); CREATININE 0.96 MG/DL (0.40-0.90); GLUCOSE 186 MG/DL (70-104); MAGNESIUM 2.1 MG/DL (1.5-2.4); PHOSPHORUS 3.5 MG/DL (2.3-4.5); POTASSIUM 4.4 MMOL/L (3.5-5.1); SODIUM 145 MMOL/L (135-145); TOTAL CARBON DIOXIDE 29.8 MMOL/L (24-32); TOTAL PROTEIN 7.2 G/DL (6.4-8.2); eGFR 58 ML/MIN
[2021-10-16] MEDS: ipratropium/albuterol 3ml nebule NEB SCH ×5 (07:44→23:00)
[2021-10-16] MEDS: vitamin A & D ointment-NF 1 APPLIC TUBE TP SCH (08:00)
[2021-10-16] MEDS: nicotine 14mg patch - 24hr TD SCH (08:00)
[2021-10-16] MEDS: K and/or MAG REPLACEMENT MC SCH ×2 (08:00→20:00)
[2021-10-16] MEDS: allopurinol 100mg tablet PO SCH (08:58)
[2021-10-16] MEDS: docusate sod 100mg capsule PO SCH ×2 (08:58→19:49)
[2021-10-16] MEDS: gabapentin 400mg capsule PO SCH (08:58)
[2021-10-16] MEDS: baclofen 10mg tablet PO SCH ×4 (08:59→21:29)
[2021-10-16] MEDS: atorvastatin 20mg tablet PO SCH (08:59)
[2021-10-16] MEDS: lisinopril 20mg tablet PO SCH (08:59)
[2021-10-16] MEDS: CefTRIAXone/D5W-Rocephin 1gm 50 ML IV SCH (09:01)
[2021-10-16] MEDS: enoxaparin 40mg/0.4ml syringe SUBCUT SCH (09:01)
[2021-10-16] MEDS: azithromycin/NS 500mg/250ml 250 ML IV SCH (09:01)
[2021-10-16] MEDS: insulin Lispro (HumaLOG) vial - multi-dose SQ SCH (09:30)
[2021-10-16 11:00] VITALS: BP 147/94
--- NOTE | 2021-10-16 13:31 | NUR ---
PRESSURE ULCER EDUCATION: DEFINITION: A pressure ulcer is an area of skin that breaks down when you stay in one position too long. The constant pressure against the skin reduces the blood flow to that area and the affected tissue dies. CAUSES: "Being bedridden or in a wheelchair "Fragile skin "Having a chronic condition, such as diabetes or vascular disease "Inability to move certain parts of your body without assistance "Older age "Incontinence of urine or stool SYMPTOMS: "A reddened area that DOES NOT turn white when pressed on - this can be the beginning of a pressure ulcer "A blister, deep sore or a crater - these can be advanced pressure ulcers FIRST AID: "Relieve the pressure on this area "Keep the area clean and dry "Call your primary doctor if you see any of the above symptoms "DO NOT massage the area "DO NOT use a donut shaped or ring shaped pillow- these actually interfere with the blood flow and cause complications PREVENTION: "Check for pressure ulcers everyday "Change position at least every two hours to relieve pressure "Use items that help relieve pressure- pillows, sheepskin, foam padding, and powders. "Keep skin clean and dry "Eat healthy well balanced meals "Exercise daily IF YOU SEE ANY OF THESE SYMPTOMS WHILE IN THE HOSPITAL - TELL YOUR NURSE IMMEDIATELY. IF YOU SEE ANY OF THESE SYMPTOMS WHILE AT HOME OR HAVE ANY QUESTIONS OR CONCERNS ABOUT PRESSURE ULCERS - CALL YOUR PRIMARY DOCTOR IMMEDIATELY. Addendum: 10/16/21 at 1331 by Nancie Harrington LVN Amended: Links added.
--- NOTE | 2021-10-16 14:00 | NUR ---
Patient refused to eat their meal tray so I refrained from covering the patients glucose to prevent hypoglycemia.
[2021-10-16 15:00] VITALS: BP 115/75
[2021-10-16 18:00] VITALS: BP 112/68
--- NOTE | 2021-10-16 20:00 | NUR ---
Problems reprioritized. Patient report given, questions answered & plan of care reviewed with Adriana MORROW.
[2021-10-16] MEDS: ondansetron/PF 4mg/2ml inj IV PRN (21:29)
[2021-10-16] MEDS: insulin glargine (Lantus) pen - multi-dose SQ SCH (21:39)
[2021-10-16 22:00] VITALS: BP 140/93
[2021-10-16] MEDS ORDERED: diltiazem 30mg tablet PO ONE (23:00)
[2021-10-17] VITALS (7 sets, daily range): BP systolic 125–182; BP diastolic 84–104
[2021-10-17] MEDS: mag hydrox/Alum hydrox/simeth 30ml oral suspension PO PRN ×2 (02:17→09:37)
[2021-10-17] MEDS: guaiFENesin/DM 10ml UD oral syrup PO PRN (02:17)
[2021-10-17] MEDS: methylPREDNISolone sod succ 125mg/2ml vial IV SCH ×4 (02:17→20:56)
[2021-10-17] MEDS: ondansetron/PF 4mg/2ml inj IV PRN ×2 (04:11→09:41)
--- NOTE | 2021-10-17 04:46 | NUR ---
At 2258 Dr. Gordon notified of patient's increased heart rate. Patient's heart rate was sustaining in the 140s-150s. Dr Gordon ordered Cardizem 60 mg PO once and then PRN dose for HR>100. will continue to assess
[2021-10-17 06:17] LABS: BASOPHILS % (AUTO) 0.1 % (0-1); EOSINOPHILS % (AUTO) 0 % (0-6); HEMATOCRIT 36.9 % (35.0-45.0); HEMOGLOBIN 12.1 g/dl (12.0-16.0); LYMPHOCYTES # (AUTO) 0.8 X10'3 (1.1-4.8); LYMPHOCYTES % (AUTO) 5.1 % (21-51); MEAN CORPUSCULAR HEMOGLOBIN 30.2 PG (27.0-31.0); MEAN CORPUSCULAR HGB CONC 32.9 g/dL (33.0-36.5); MEAN CORPUSCULAR VOLUME 91.7 FL (78-98); MEAN PLATELET VOLUME 8.5 FL (7.4-10.4); MONOCYTES # (AUTO) 0.3 X10'3 (0-0.9); MONOCYTES % (AUTO) 1.8 % (2-12); NEUTROPHILS # (AUTO) 15.4 X10'3 (1.8-7.7); PLATELET COUNT 228 X10'3 (140-440); RED BLOOD COUNT 4.02 X10'6 (4.20-5.60); RED CELL DISTRIBUTION WIDTH 14.9 % (11.5-14.5); WHITE BLOOD COUNT 16.6 X10'3 (4.5-11.0)
[2021-10-17 06:31] LABS: ALANINE AMINOTRANSFERASE 31 U/L (12-78); ALBUMIN/GLOBULIN RATIO 0.7 (1.1-1.5); ALKALINE PHOSPHATASE 100 IU/L (46-116); ANION GAP 6 (8-16); ASPARTATE AMINO TRANSFERASE 27 U/L (10-37); BILIRUBIN,TOTAL 0.3 MG/DL (0.1-1.0); BLOOD UREA NITROGEN 28 MG/DL (7-18); BUN/CREATININE RATIO 26.4 (6.6-38.0); CALCIUM 9.6 MG/DL (8.5-10.1); CHLORIDE 106 MMOL/L (99-107); CREATININE 1.06 MG/DL (0.40-0.90); GLUCOSE 215 MG/DL (70-104); MAGNESIUM 2.5 MG/DL (1.5-2.4); POTASSIUM 4.8 MMOL/L (3.5-5.1); SODIUM 145 MMOL/L (135-145); TOTAL CARBON DIOXIDE 32.6 MMOL/L (24-32); TOTAL PROTEIN 7.1 G/DL (6.4-8.2); eGFR 52 ML/MIN
--- NOTE | 2021-10-17 06:35 | NUR ---
Patient in room PCU 3024. I have received report from CRISTHIAN Wright and had the opportunity to ask questions and assume patient care.
[2021-10-17] MEDS: ipratropium/albuterol 3ml nebule NEB SCH ×5 (07:00→23:12)
[2021-10-17] MEDS: lisinopril 20mg tablet PO SCH (08:00)
[2021-10-17] MEDS: docusate sod 100mg capsule PO SCH ×2 (08:00→20:00)
[2021-10-17] MEDS: allopurinol 100mg tablet PO SCH (08:00)
[2021-10-17] MEDS: K and/or MAG REPLACEMENT MC SCH ×2 (08:00→20:00)
[2021-10-17] MEDS: baclofen 10mg tablet PO SCH ×4 (08:00→20:57)
[2021-10-17] MEDS: gabapentin 400mg capsule PO SCH (08:00)
[2021-10-17] MEDS: atorvastatin 20mg tablet PO SCH (08:00)
--- NOTE | 2021-10-17 08:37 | NUR ---
unable to pass scheduled 0800 meds at this time D/T no internet to portable computers.
[2021-10-17] MEDS: CefTRIAXone/D5W-Rocephin 1gm 50 ML IV SCH (09:35)
[2021-10-17] MEDS: nicotine 14mg patch - 24hr TD SCH (09:39)
[2021-10-17] MEDS ORDERED: PRED20TA PO (09:56)
[2021-10-17] MEDS ORDERED: LEVO-65 PO (09:56)
[2021-10-17] MEDS ORDERED: NICO-631 TD (09:56)
[2021-10-17] MEDS ORDERED: IPRA3AMP9 NEB (09:56)
[2021-10-17] MEDS ORDERED: DILT30TA2 PO (09:56)
[2021-10-17] MEDS: azithromycin/NS 500mg/250ml 250 ML IV SCH (10:15)
[2021-10-17] MEDS ORDERED: proCHLORperazine 10 MG/2 ml inj IV PRN (10:35)
[2021-10-17] MEDS ORDERED: iohexol 350MG/ML 100ml bottle IV ONE (11:27)
[2021-10-17] MEDS: insulin Lispro (HumaLOG) vial - multi-dose SQ SCH ×2 (13:26→19:51)
[2021-10-17] MEDS: pantoprazole 40MG/NS 100ML BAG 100 ML IV SCH ×2 (13:33→20:55)
[2021-10-17] MEDS: enoxaparin 40mg/0.4ml syringe SUBCUT SCH (14:59)
[2021-10-17] MEDS: vitamin A & D ointment-NF 1 APPLIC TUBE TP SCH (16:18)
--- NOTE | 2021-10-17 18:30 | NUR ---
Problems reprioritized. Patient report given, questions answered & plan of care reviewed with Leida RN.
[2021-10-17] MEDS: diltiazem 30mg tablet PO PRN (22:07)
[2021-10-17] MEDS: metoclopramide 5 mg/ml inj IV PRN (22:08)
[2021-10-17] MEDS: insulin glargine (Lantus) pen - multi-dose SQ SCH (22:24)
[2021-10-18] VITALS (9 sets, daily range): BP systolic 107–141; BP diastolic 60–96
[2021-10-18] MEDS ORDERED: diltiazem 5mg/ml 5ml inj. IV ONE ×2 (01:45)
--- NOTE | 2021-10-18 02:20 | NUR ---
Assisted RN Leida with administration of Cardizem per order.
[2021-10-18] MEDS: methylPREDNISolone sod succ 125mg/2ml vial IV SCH (02:31)
[2021-10-18] MEDS: diltiazem 30mg tablet PO PRN (04:35)
--- NOTE | 2021-10-18 06:32 | NUR ---
Patient in room PCU 3024. I have received report from CRISTHIAN Casarez and had the opportunity to ask questions and assume patient care.
[2021-10-18 06:58] LABS: BASOPHILS % (AUTO) 0.1 % (0-1); EOSINOPHILS % (AUTO) 0 % (0-6); HEMATOCRIT 40.1 % (35.0-45.0); HEMOGLOBIN 12.8 g/dl (12.0-16.0); LYMPHOCYTES # (AUTO) 1.7 X10'3 (1.1-4.8); LYMPHOCYTES % (AUTO) 9.7 % (21-51); MEAN CORPUSCULAR HEMOGLOBIN 29.9 PG (27.0-31.0); MEAN CORPUSCULAR HGB CONC 32.1 g/dL (33.0-36.5); MEAN CORPUSCULAR VOLUME 93.2 FL (78-98); MEAN PLATELET VOLUME 8.6 FL (7.4-10.4); MONOCYTES # (AUTO) 0.3 X10'3 (0-0.9); MONOCYTES % (AUTO) 1.6 % (2-12); NEUTROPHILS # (AUTO) 15.3 X10'3 (1.8-7.7); NEUTROPHILS % (AUTO) 88.6 % (42-75); PLATELET COUNT 255 X10'3 (140-440); RED CELL DISTRIBUTION WIDTH 15.1 % (11.5-14.5); WHITE BLOOD COUNT 17.3 X10'3 (4.5-11.0)
[2021-10-18] MEDS: ipratropium/albuterol 3ml nebule NEB SCH ×5 (07:00→23:20)
[2021-10-18 07:16] LABS: ALANINE AMINOTRANSFERASE 34 U/L (12-78); ALBUMIN 3.2 G/DL (3.4-5.0); ALBUMIN/GLOBULIN RATIO 0.7 (1.1-1.5); ALKALINE PHOSPHATASE 105 IU/L (46-116); ANION GAP 5 (8-16); ASPARTATE AMINO TRANSFERASE 30 U/L (10-37); BILIRUBIN,TOTAL 0.4 MG/DL (0.1-1.0); BLOOD UREA NITROGEN 37 MG/DL (7-18); BUN/CREATININE RATIO 31.9 (6.6-38.0); CALCIUM 9.7 MG/DL (8.5-10.1); CHLORIDE 104 MMOL/L (99-107); CREATININE 1.16 MG/DL (0.40-0.90); GLUCOSE 187 MG/DL (70-104); PHOSPHORUS 4.6 MG/DL (2.3-4.5); POTASSIUM 5.2 MMOL/L (3.5-5.1); SODIUM 143 MMOL/L (135-145); TOTAL CARBON DIOXIDE 33.8 MMOL/L (24-32); TOTAL PROTEIN 7.6 G/DL (6.4-8.2); eGFR 47 ML/MIN
[2021-10-18] MEDS ORDERED: diltiazem 30mg tablet PO PRN (08:00)
[2021-10-18] MEDS: K and/or MAG REPLACEMENT MC SCH ×2 (08:00→20:00)
[2021-10-18] MEDS: CefTRIAXone/D5W-Rocephin 1gm 50 ML IV SCH (10:21)
[2021-10-18] MEDS: enoxaparin 40mg/0.4ml syringe SUBCUT SCH (10:25)
[2021-10-18] MEDS: docusate sod 100mg capsule PO SCH ×2 (10:26→18:52)
[2021-10-18] MEDS: allopurinol 100mg tablet PO SCH (10:26)
[2021-10-18] MEDS: predniSONE 20 mg tablet PO SCH (10:26)
[2021-10-18] MEDS: gabapentin 400mg capsule PO SCH (10:26)
[2021-10-18] MEDS: baclofen 10mg tablet PO SCH ×4 (10:26→23:08)
[2021-10-18] MEDS: atorvastatin 20mg tablet PO SCH (10:27)
[2021-10-18] MEDS: diltiazem 30mg tablet PO SCH ×3 (10:28→18:52)
[2021-10-18] MEDS: metoclopramide 5 mg/ml inj IV PRN (10:29)
[2021-10-18] MEDS: nicotine 14mg patch - 24hr TD SCH (10:29)
[2021-10-18] MEDS: insulin Lispro (HumaLOG) vial - multi-dose SQ SCH ×3 (10:45→20:41)
[2021-10-18] MEDS ORDERED: PERFLUTREN PROTEIN-A MICROSPHR (Optison) 0.22 MG/ML 3ML VIAL IV ONE (11:30)
--- NOTE | 2021-10-18 15:26 | NUR ---
Burt Consult: Burt 9 w/ L posterior leg venous ulcer since admit per EMR. Prior PO ~100% meals meeting estimated needs for wound healing though noted PO declined since 10/16 started to refuse meals. Per MD note, pt w/ onset of severe epigastric pain, N/V though CT negative. LBM 10/15. Will monitor for further PO trends and nutrition intervention needs. Addendum: 10/18/21 at [address] Amended: Links added.
[2021-10-18] MEDS: vitamin A & D ointment-NF 1 APPLIC TUBE TP SCH (16:34)
[2021-10-18] MEDS ORDERED: LORazepam 0.5 MG tablet PO PRN (17:40)
--- NOTE | 2021-10-18 18:47 | NUR ---
Problems reprioritized. Patient report given, questions answered & plan of care reviewed with CRISTHIAN Garcias.
[2021-10-18] MEDS: carVEDilol 3.125mg tablet PO SCH (18:52)
[2021-10-18] MEDS: enoxaparin 100mg/ml syringe SUBCUT SCH (18:53)
--- NOTE | 2021-10-18 19:26 | NUR ---
Patient in room PCU 3029O. I have received report from Aundrea MORROW and had the opportunity to ask questions and assume patient care. Pt is relaxing in bed. HOB >30. Pt on 4l NC. No s/s of distress. Pt denies any c/o pain. BLL, call light within reach, frequently used items in reach, frequent rounding. Will continue to monitor.
--- NOTE | 2021-10-18 19:29 | NUR ---
RT notified primary nurse that PT is declining tonights RT treatments. Please see interventions. Education provided, risks vs benifits explained. Pt states understanding.
[2021-10-18] MEDS: insulin glargine (Lantus) pen - multi-dose SQ SCH (23:07)
[2021-10-18] MEDS: LORazepam 0.5 MG tablet PO PRN (23:08)
[2021-10-19] VITALS (7 sets, daily range): BP systolic 118–142; BP diastolic 75–97
[2021-10-19] MEDS: diltiazem 30mg tablet PO SCH ×4 (02:16→20:17)
--- NOTE | 2021-10-19 06:35 | NUR ---
Problems reprioritized. Patient report given, questions answered & plan of care reviewed with Laney MORROW.
[2021-10-19] MEDS: ipratropium/albuterol 3ml nebule NEB SCH ×5 (07:15→23:16)
[2021-10-19] MEDS: K and/or MAG REPLACEMENT MC SCH ×2 (08:00→20:00)
[2021-10-19] MEDS: docusate sod 100mg capsule PO SCH ×2 (08:01→20:18)
[2021-10-19] MEDS: predniSONE 20 mg tablet PO SCH (08:01)
[2021-10-19] MEDS: allopurinol 100mg tablet PO SCH (08:03)
[2021-10-19] MEDS: atorvastatin 20mg tablet PO SCH (08:03)
[2021-10-19] MEDS: lisinopril 10 MG tablet PO SCH (08:03)
[2021-10-19] MEDS: gabapentin 400mg capsule PO SCH (08:03)
[2021-10-19] MEDS: baclofen 10mg tablet PO SCH ×4 (08:03→20:18)
[2021-10-19] MEDS: carVEDilol 3.125mg tablet PO SCH ×2 (08:04→20:17)
[2021-10-19] MEDS: enoxaparin 100mg/ml syringe SUBCUT SCH ×2 (08:05→20:16)
[2021-10-19] MEDS: nicotine 14mg patch - 24hr TD SCH (08:06)
[2021-10-19] MEDS: vitamin A & D ointment-NF 1 APPLIC TUBE TP SCH (08:07)
[2021-10-19 10:27] LABS: BASOPHILS # (AUTO) 0.2 X10'3 (0-0.2); BASOPHILS % (AUTO) 1.5 % (0-1); EOSINOPHILS # (AUTO) 0.2 X10'3 (0-0.9); EOSINOPHILS % (AUTO) 1.2 % (0-6); HEMATOCRIT 38.4 % (35.0-45.0); HEMOGLOBIN 12.4 g/dl (12.0-16.0); LYMPHOCYTES # (AUTO) 1.9 X10'3 (1.1-4.8); LYMPHOCYTES % (AUTO) 11.9 % (21-51); MEAN CORPUSCULAR HEMOGLOBIN 29.9 PG (27.0-31.0); MEAN CORPUSCULAR HGB CONC 32.3 g/dL (33.0-36.5); MEAN CORPUSCULAR VOLUME 92.5 FL (78-98); MEAN PLATELET VOLUME 8.4 FL (7.4-10.4); MONOCYTES # (AUTO) 1.3 X10'3 (0-0.9); MONOCYTES % (AUTO) 8.3 % (2-12); NEUTROPHILS # (AUTO) 12.2 X10'3 (1.8-7.7); NEUTROPHILS % (AUTO) 77.1 % (42-75); PLATELET COUNT 236 X10'3 (140-440); RED BLOOD COUNT 4.15 X10'6 (4.20-5.60); RED CELL DISTRIBUTION WIDTH 15.3 % (11.5-14.5); WHITE BLOOD COUNT 15.9 X10'3 (4.5-11.0)
[2021-10-19 10:38] LABS: ALANINE AMINOTRANSFERASE 55 U/L (12-78); ALBUMIN 2.8 G/DL (3.4-5.0); ALBUMIN/GLOBULIN RATIO 0.7 (1.1-1.5); ALKALINE PHOSPHATASE 90 IU/L (46-116); ANION GAP 5 (8-16); ASPARTATE AMINO TRANSFERASE 56 U/L (10-37); BILIRUBIN,TOTAL 0.6 MG/DL (0.1-1.0); BLOOD UREA NITROGEN 39 MG/DL (7-18); BUN/CREATININE RATIO 36.8 (6.6-38.0); CALCIUM 9.2 MG/DL (8.5-10.1); CHLORIDE 103 MMOL/L (99-107); CREATININE 1.06 MG/DL (0.40-0.90); GLUCOSE 114 MG/DL (70-104); POTASSIUM 4.4 MMOL/L (3.5-5.1); SODIUM 141 MMOL/L (135-145); TOTAL CARBON DIOXIDE 33.4 MMOL/L (24-32); TOTAL PROTEIN 6.6 G/DL (6.4-8.2); eGFR 52 ML/MIN
[2021-10-19] MEDS: CefTRIAXone/D5W-Rocephin 1gm 50 ML IV SCH (14:16)
[2021-10-19] MEDS: insulin Lispro (HumaLOG) vial - multi-dose SQ SCH ×2 (15:39→20:13)
--- NOTE | 2021-10-19 19:12 | NUR ---
Patient in room U 3027B. I have received report from Laney MORROW and had the opportunity to ask questions and assume patient care. Pt is sittin up in bed eating dinner. HOB >30. Pt on 4L NC. No s/s of distress. Pt denies any c/o pain. BLL, call light within reach, frequently used items in reach, frequent rounding, sales project engineer socks on. Will continue to monitor.
[2021-10-19] MEDS: mag hydrox/Alum hydrox/simeth 30ml oral suspension PO PRN (20:18)
[2021-10-19] MEDS: insulin glargine (Lantus) pen - multi-dose SQ SCH (22:27)
[2021-10-20] MEDS: diltiazem 30mg tablet PO SCH ×4 (02:23→19:22)
[2021-10-20 06:00] VITALS: BP 119/82
[2021-10-20] MEDS: ipratropium/albuterol 3ml nebule NEB SCH ×5 (07:45→22:47)
[2021-10-20] MEDS: vitamin A & D ointment-NF 1 APPLIC TUBE TP SCH (08:00)
[2021-10-20] MEDS: K and/or MAG REPLACEMENT MC SCH ×2 (08:00→20:00)
[2021-10-20] MEDS: CefTRIAXone/D5W-Rocephin 1gm 50 ML IV SCH (08:31)
[2021-10-20] MEDS: nicotine 14mg patch - 24hr TD SCH (08:31)
[2021-10-20] MEDS: atorvastatin 20mg tablet PO SCH (08:32)
[2021-10-20] MEDS: carVEDilol 3.125mg tablet PO SCH ×2 (08:32→19:22)
[2021-10-20] MEDS: enoxaparin 100mg/ml syringe SUBCUT SCH ×2 (08:32→19:23)
[2021-10-20] MEDS: docusate sod 100mg capsule PO SCH ×2 (08:33→19:22)
[2021-10-20] MEDS: HYDROcodone/acetaminophen 5mg/325mg tablet PO PRN (08:33)
[2021-10-20] MEDS: allopurinol 100mg tablet PO SCH (08:33)
[2021-10-20] MEDS: predniSONE 20 mg tablet PO SCH (08:34)
[2021-10-20] MEDS: lisinopril 10 MG tablet PO SCH (08:34)
[2021-10-20] MEDS: gabapentin 400mg capsule PO SCH (08:34)
[2021-10-20] MEDS: baclofen 10mg tablet PO SCH ×4 (08:34→21:01)
[2021-10-20] MEDS: insulin Lispro (HumaLOG) vial - multi-dose SQ SCH ×2 (13:37→21:00)
[2021-10-20 15:00] VITALS: BP 90/68
[2021-10-20] MEDS: HYDROcodone/acetaminophen 10/325mg tab PO PRN (16:57)
--- NOTE | 2021-10-20 18:18 | NUR ---
Patient in room PCU 3027K. I have received report from and had the opportunity to ask questions and assume patient care. Pt is laying semi fowlers c/o abd discomfort. Please see interventions. Pt states she is not hungry for dinner. BLL, call light within reach, frequently used items inreach, frequent rounding. Will continue to monitor.
[2021-10-20] MEDS: metoclopramide 5 mg/ml inj IV PRN (18:48)
[2021-10-20] MEDS ORDERED: calcium chloride 100 MG/1 ML inj IV ONE (20:00)
[2021-10-20] MEDS ORDERED: epiNEPHrine 0.1mg/ml 10ml syringe ONE (20:00)
[2021-10-20] MEDS ORDERED: 0.9 % SODIUM CHLORIDE 10 ML VIAL ONE (20:00)
[2021-10-20] MEDS ORDERED: sodium bicarbonate (8.4%) 1 mEq/ml syringe ONE (20:00)
[2021-10-20] MEDS ORDERED: furosemide 20 MG/2 ML vial IV SCH (20:00)
[2021-10-20] MEDS: insulin glargine (Lantus) pen - multi-dose SQ SCH (21:00)
[2021-10-20] MEDS: LORazepam 0.5 MG tablet PO PRN (21:01)
[2021-10-20] MEDS ORDERED: albuterol 2.5 MG/3 ML nebule NEB STA (22:39)
[2021-10-20 22:44] LABS: ABG BASE EXCESS -4.7 mmol/L (-2.0-2.0); ABG HCO3 20.9 mmol/L (22.0-26.0); ABG OXYGEN SATURATION 91.4 % (94-97); ABG PO2 (T) 73.8 mmHg (75.0-100.0); ALLEN'S TEST POSITIVE; FCOHb 0.3 % (0.0-3.9); FLOW 2 L/min; FMetHb 0.2 % (0.0-1.5); FO2Hb 90.9 % (94-97); PATIENT TEMPERATURE 37.1; TOTAL HEMOGLOBIN 11.1 G/dl (12.0-16.0)
--- NOTE | 2021-10-20 22:53 | NUR ---
Code blue initated for agonal breathing and PEA ( See Code Blue Record) patient received CPR from 2252 to 2314 and transported to ICU with palpable pulse and then patient went back into PEA at 2318 in the ICU and was pronounced at [address] . Dr. Head was at patient's bedside throughout entire Code Blue ( see Code Blue sheets)
[2021-10-20 23:10] LABS: ALBUMIN 2.5 G/DL (3.4-5.0); ANION GAP 12 (8-16); BLOOD UREA NITROGEN 45 MG/DL (7-18); BUN/CREATININE RATIO 20.4 (6.6-38.0); CALCIUM 9.4 MG/DL (8.5-10.1); CHLORIDE 100 MMOL/L (99-107); CREATININE 2.21 MG/DL (0.40-0.90); GLUCOSE 250 MG/DL (70-104); SODIUM 138 MMOL/L (135-145); TOTAL CARBON DIOXIDE 25.8 MMOL/L (24-32); eGFR 22 ML/MIN
[2021-10-20 23:13] LABS: APTT 32 SECONDS (22-32)
[2021-10-20 23:16] LABS: POTASSIUM 6.5 MMOL/L (3.5-5.1)
[2021-10-20] MEDS ORDERED: NORepinephrine 8mg/ 250ml NS 250 ML IV ONE (23:34)
--- NOTE | 2021-10-21 00:01 | NUR ---
bundling machine operator Dary Fong was notified of patient's expiration and gave consent for body to go to [facility].
--- NOTE | 2021-10-21 00:13 | NUR ---
Rapid Response called at 2238 A rapid response was called on this patient. On arrival to bedside, the patient was A &O x1, diaphoretic, BG 275, HR 60, BP 82/60, 90% O2 on 3L nc. Interventions: RT treatment, STAT chest x-ray and lab draw. Rapid response outcome: Pts condition deteriorated and a CODE BLUE was called @ 2245. Multiple rounds of CPR AND ACLS medications administered. Pt became stable enough to transfer to ICU. Compressions and ACLS medications resumed per MD direction. Please see interventions, and follow up documentation.
== END 2021-10-20 23:39 | DRG 871 ==
LOC: ER 05:22 → ED HOLD 08:13 → PCU 3S 12:39 → ICU 2S 10-21 00:31 → PCU 3S 10-21 00:31 → UNDODISIN 10-21 01:56
PROVIDERS: ADMIT Family Medicine; ATTEND Family Medicine
PROC: 5A09357 Assistance with Respiratory Ventilation, Less than 24 Consecutive Hours, Continuous Positive Airway Pressure (ICD-10-PCS; principal; 2021-10-13)
PROC: BW211ZZ Computerized Tomography (CT Scan) of Abdomen and Pelvis using Low Osmolar Contrast (ICD-10-PCS; 2021-10-17)
PROC: 5A12012 Performance of Cardiac Output, Single, Manual (ICD-10-PCS; 2021-10-20)
PROC: 0BH17EZ Insertion of Endotracheal Airway into Trachea, Via Natural or Artificial Opening (ICD-10-PCS; 2021-10-20)
PROC: 06HY33Z Insertion of Infusion Device into Lower Vein, Percutaneous Approach (ICD-10-PCS; 2021-10-20)
DX: A41.9 Sepsis, unspecified organism (principal); I21.A1 Myocardial infarction type 2; J18.9 Pneumonia, unspecified organism; J96.01 Acute respiratory failure with hypoxia; J96.02 Acute respiratory failure with hypercapnia; N17.0 Acute kidney failure with tubular necrosis; E87.0 Hyperosmolality and hypernatremia; E87.2 Acidosis; J44.0 Chronic obstructive pulmonary disease with (acute) lower respiratory infection; Z68.44 Body mass index [BMI] 60.0-69.9, adult; I13.0 Hypertensive heart and chronic kidney disease with heart failure and stage 1 through stage 4 chronic kidney disease, or unspecified chronic kidney disease; I46.9 Cardiac arrest, cause unspecified; F32.A Depression, unspecified; G47.33 Obstructive sleep apnea (adult) (pediatric); K21.9 Gastro-esophageal reflux disease without esophagitis; E11.22 Type 2 diabetes mellitus with diabetic chronic kidney disease; M10.9 Gout, unspecified; M19.90 Unspecified osteoarthritis, unspecified site; F17.200 Nicotine dependence, unspecified, uncomplicated; E78.5 Hyperlipidemia, unspecified; K76.0 Fatty (change of) liver, not elsewhere classified; I48.0 Paroxysmal atrial fibrillation; K29.00 Acute gastritis without bleeding; Z20.822 Contact with and (suspected) exposure to COVID-19; N18.30 Chronic kidney disease, stage 3 unspecified; Y92.230 Patient room in hospital as the place of occurrence of the external cause; R23.0 Cyanosis; F41.1 Generalized anxiety disorder; R74.01 Elevation of levels of liver transaminase levels; E66.01 Morbid (severe) obesity due to excess calories; E78.00 Pure hypercholesterolemia, unspecified; I27.81 Cor pulmonale (chronic); I50.9 Heart failure, unspecified; T38.0X5A Adverse effect of glucocorticoids and synthetic analogues, initial encounter; Z79.01 Long term (current) use of anticoagulants; Z83.3 Family history of diabetes mellitus; Z71.6 Tobacco abuse counseling; E87.5 Hyperkalemia; Z74.01 Bed confinement status
CPT/HCPCS: 36415; 36600; 71045; 74177; 76700; 80048; 80053; 80061; 81001; 82803; 82948; 83036; 83605; 83735; 83880; 84100; 84132; 84443; 84484; 85007; 85018; 85025; 85610; 85730; 87040; 87070; 87077; 87081; 87186; 87635; 87811; 92950; 93005; 93306; 94640; 94660; 94664; 94668; 94760; 94799; 96374; 96375; 97110; 97161; 97530; 99291; A4615; A6154; A6212; A6213; A6222; A6223; A6250; A6258; A6446; A6449; C9113; C9803; G0378; J0171; J0456; J0696; J0780; J1170; J1650; J1815; J1940; J2405; J2765; J2930; J3490; J7030; J7040; J7042; J7070; J7512; Q9967